=== PATIENT | female | born 1940 | race Caucasian/White ===

== ENCOUNTER 2016-10-20 09:46 | Emergency (ER) | payer MEDICARE, OTHER ==
[~2016-10-20] VITALS: Ht 165.1 cm; Wt 54.0 kg
[2016-10-20] MEDS ORDERED: ASPI81TA85 PO (10:15)
[2016-10-20] MEDS ORDERED: MULT1CHW39 PO (10:15)
[2016-10-20] MEDS ORDERED: HYDR12.55 PO (10:15)
[2016-10-20] MEDS ORDERED: CALC600T57 PO (10:15)
[2016-10-20] MEDS ORDERED: ARIC10TA PO (10:15)
[2016-10-20 10:48] LABS: BASO % 0.3 % (0.0-1.0); EOS # 0.1 K/mm3 (0.0-0.50); EOS % 1.6 % (0.0-3.0); LARGE UNSTAINED CELL # 0.1 K/mm3 (0.0-0.4); LYMPH # 1.5 K/mm3 (1.5-4.5); LYMPH % 24.5 % (24.0-44.0); MEAN CORPUSCULAR HGB CONC 32.9 g/dl (32.0-36.5); MONO # 0.4 K/mm3 (0.0-0.8); MONO % 6.4 % (0.0-5.0); NEUTROPHILS # 3.9 K/mm3 (1.8-7.7); NEUTROPHILS % 65.2 % (36.0-66.0); PLATELET COUNT, AUTOMATED 171 k/mm3 (150-450); RED CELL DISTRIBUTION WIDTH 12.5 % (11.5-14.5); WHITE BLOOD COUNT 5.9 K/mm3 (4.0-10.0)
[2016-10-20 11:13] LABS: ANION GAP 6 MEQ/L (8-16); BLOOD UREA NITROGEN 13 MG/DL (7-18); CARBON DIOXIDE LEVEL 32 MEQ/L (21-32); CHLORIDE LEVEL 105 MEQ/L (98-107); CREATININE FOR GFR 0.67 MG/DL (0.55-1.02); GLOMERULAR FILTRATION RATE > 60.0 (>39); GLUCOSE, FASTING 90 MG/DL (83-110); POTASSIUM SERUM 3.9 MEQ/L (3.5-5.1); SODIUM LEVEL 143 MEQ/L (136-145)
--- NOTE | 2016-10-20 12:05 | REP ---
CT HEAD WITHOUT CONTRAST: HISTORY: Left arm sensation loss. Areas of decreased attenuation are present in the periventricular and subcortical white matter. This represents small vessel ischemic disease. The ventricular system and cortical sulci as well as subarachnoid space in the posterior fossa are dilated consistent with moderate volume loss. There is no extracerebral collection. The visualized sinuses are clear. IMPRESSION: 1. Small vessel ischemic disease. 2. Moderate volume loss. Signed by Sammy España MD 10/20/2016 12:09 P
--- NOTE | 2016-10-20 13:31 | REP ---
CHEST, TWO VIEWS: COMPARISON: 03/31/2010. Mild scattered fibrotic changes are seen without evidence of acute infiltrate or pulmonary edema. The heart is normal in size. There is calcification of the thoracic aorta. Mediastinal silhouette is unchanged. There is mild apical pleural thickening, unchanged. There are mild degenerative changes. IMPRESSION: Mild chronic findings. No evidence of acute infiltrate. Signed by Jesus Marmolejo MD 10/20/2016 05:01 P
--- NOTE | 2016-10-20 16:19 | REP ---
MR BRAIN WITHOUT CONTRAST: HISTORY: Sensation loss left upper extremity. COMPARISON: MR 01/31/[address] 10/20/2016. Areas of increased signal intensity on T2 weighed images are present in the periventricular and subcortical white matter. This represents small vessel ischemic disease. There is no intraparenchymal hemorrhage, infarct, mass, or midline shift. The ventricular system and cortical sulci as well as subarachnoid space and the posterior fossa are dilated consistent with mild volume loss. There is no extracerebral collection. The visualized sinuses are clear. IMPRESSION: 1. Small vessel ischemic disease. 2. Mild volume loss. Signed by Sammy España MD 10/20/2016 04:20 P
[2016-10-20 17:38] VITALS: BP 141/66
--- NOTE | 2016-10-21 09:01 | ECGEPIP ---
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
--- NOTE | 2016-10-21 09:04 | ECGEPIP ---
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
--- NOTE | 2016-10-30 14:48 | REP ---
MRA BRAIN WITHOUT CONTRAST: HISTORY: Sensation loss left upper extremity. 3D [id number] MR angiography was performed at the level of the [place] of [place]. There is no aneurysm or arteriovenous malformation. Mild atherosclerotic disease involves the cavernous internal carotid arteries, posterior cerebral arteries and left middle cerebral artery trifurcation. The major intracranial vessels are patent. The left vertebral artery is dominant. The right vertebral artery terminates in the right posterior/inferior cerebellar artery. IMPRESSION: 1. There is no aneurysm or arteriovenous malformation. 2. Atherosclerotic disease as described above. Signed by Sammy España MD 10/30/2016 02:53 P
== END 2016-10-20 17:46 | disposition home or self-care (01) ==
LOC: EDBD 09:46 → M ED 11:31
DX: R07.9 Chest pain, unspecified (principal); I10 Essential (primary) hypertension; F03.90 Unspecified dementia, unspecified severity, without behavioral disturbance, psychotic disturbance, mood disturbance, and anxiety; Z87.891 Personal history of nicotine dependence; Z79.82 Long term (current) use of aspirin; Z79.899 Other long term (current) drug therapy

== ENCOUNTER → 2017-02-20 | Outpatient (REF) | payer MEDICARE, OTHER ==
[~2017-02-20] MED LIST: AMLO5TAB2 PO; ARIC1TAB2 PO; ASPI81TA85 PO; CALC600T57 PO; CEFT500T3 PO; HYDR12.55 PO; MEMA1TAB PO; MULT1CHW39 PO; ROSU10TA2 PO; VITMTA PO
[2017-02-20 19:58] LABS: ALBUMIN 3.8 GM/DL (3.2-5.2); ALBUMIN/GLOBULIN RATIO 1.23 (1.00-1.93); ALKALINE PHOSPHATASE 65 U/L (45-117); ALT/SGPT 20 U/L (12-78); ANION GAP 7 MEQ/L (8-16); AST/SGOT 19 U/L (15-37); BLOOD UREA NITROGEN 13 MG/DL (7-18); CALCIUM LEVEL 9.4 MG/DL (8.8-10.2); CARBON DIOXIDE LEVEL 32 MEQ/L (21-32); CHLORIDE LEVEL 102 MEQ/L (98-107); CHOLESTEROL LEVEL 293 MG/DL (<200); GLOMERULAR FILTRATION RATE > 60.0 (>39); GLUCOSE, FASTING 88 MG/DL (83-110); POTASSIUM SERUM 4.8 MEQ/L (3.5-5.1); SODIUM LEVEL 141 MEQ/L (136-145); TOTAL PROTEIN 6.9 GM/DL (6.4-8.2); TRIGLYCERIDES LEVEL 163 MG/DL (<150)
== END ==
LOC: M SFHCCAPE 08:11
PROVIDERS: ATTEND Family Medicine
DX: I10 Essential (primary) hypertension (principal); R73.03 Prediabetes; E78.2 Mixed hyperlipidemia

== ENCOUNTER → 2017-03-08 | Outpatient (REF) | payer MEDICARE, OTHER | LOC: M LABDRAWC 16:34 | PROVIDERS: ATTEND Obstetrics & Gynecology Gynecologic Oncology | DX: C56.1 Malignant neoplasm of right ovary (principal); C57.01 Malignant neoplasm of right fallopian tube ==

== ENCOUNTER → 2017-06-13 | Outpatient (REF) | payer MEDICARE, OTHER ==
[2017-06-13 19:58] LABS: ALBUMIN 4.3 GM/DL (3.2-5.2); ALBUMIN/GLOBULIN RATIO 1.59 (1.00-1.93); ALKALINE PHOSPHATASE 67 U/L (45-117); ALT/SGPT 21 U/L (12-78); ANION GAP 9 MEQ/L (8-16); AST/SGOT 21 U/L (7-37); BILIRUBIN,TOTAL 1.7 MG/DL (0.2-1.0); BLOOD UREA NITROGEN 10 MG/DL (7-18); CALCIUM LEVEL 9.2 MG/DL (8.8-10.2); CARBON DIOXIDE LEVEL 31 MEQ/L (21-32); CHLORIDE LEVEL 102 MEQ/L (98-107); CHOLESTEROL LEVEL 201 MG/DL (<200); CREATININE FOR GFR 0.75 MG/DL (0.55-1.02); GLOMERULAR FILTRATION RATE > 60.0 (>39); GLUCOSE, FASTING 95 MG/DL (83-110); POTASSIUM SERUM 3.6 MEQ/L (3.5-5.1); SODIUM LEVEL 142 MEQ/L (136-145); TRIGLYCERIDES LEVEL 123 MG/DL (<150)
== END ==
LOC: M SFHCCAPE 10:07
PROVIDERS: ATTEND Family Medicine
DX: E78.2 Mixed hyperlipidemia (principal); M83.9 Adult osteomalacia, unspecified

== ENCOUNTER 2017-07-31 14:32 | Inpatient (IN) | payer MEDICARE, OTHER ==
[~2017-07-31] VITALS: Ht 162.6 cm; Wt 57.7 kg
[2017-07-31] MEDS ORDERED: ALEN70SO PO (14:54)
[2017-07-31] MEDS ORDERED: FLAXOIL2 PO (14:54)
[2017-07-31 18:29] LABS: BASO % 0.1 % (0.0-1.0); EOS % 0.1 % (0.0-3.0); IMMATURE GRANULOCYTE % 0.5 % (0-0); LYMPH # 1.1 10^3/uL (1.5-4.5); MEAN CORPUSCULAR HEMOGLOBIN 30.7 pg (27.0-33.0); MEAN CORPUSCULAR HGB CONC 33.4 g/dl (32.0-36.5); MONO # 0.5 10^3/uL (0.0-0.8); MONO % 3.2 % (0.0-5.0); NEUTROPHILS # 13.4 10^3/uL (1.8-7.7); NEUTROPHILS % 89.1 % (36.0-66.0); PLATELET COUNT, AUTOMATED 177 10^3/uL (150-450); RED CELL DISTRIBUTION WIDTH 13.7 % (11.5-14.5); WHITE BLOOD COUNT 15.1 10^3/uL (4.0-10.0)
[2017-07-31 18:41] LABS: INR 0.89
--- NOTE | 2017-07-31 18:50 | REPUSA ---
Clinical history: Pain, swelling. Findings: The common femoral, superficial femoral, popliteal, and other deep venous structures compre ss normally and demonstrate normal color Doppler flow. Normal venous waveforms with augmentation are seen. Impression: No evidence of deep vein thrombosis in the left femoral popliteal venous system.
[2017-07-31 18:55] LABS: ANION GAP 7 MEQ/L (8-16); BLOOD UREA NITROGEN 18 MG/DL (7-18); CALCIUM LEVEL 9.6 MG/DL (8.8-10.2); CARBON DIOXIDE LEVEL 32 MEQ/L (21-32); CHLORIDE LEVEL 98 MEQ/L (98-107); CREATININE FOR GFR 0.82 MG/DL (0.55-1.02); ERYTHROCYTE SEDIMENTATION RATE 17 mm/hr (0-30); GLOMERULAR FILTRATION RATE > 60.0 (>39); GLUCOSE, FASTING 104 MG/DL (83-110); POTASSIUM SERUM 3.4 MEQ/L (3.5-5.1); SODIUM LEVEL 137 MEQ/L (136-145)
[2017-07-31] MEDS ORDERED: CEFTAROLINE FOSAMIL 600 MG in APPROPRIATE DILUENT 1 EA IV ONE (19:30)
[2017-07-31] MEDS ORDERED: HAIRTAB5 PO (19:55)
[2017-07-31] MEDS ORDERED: AMLO5TAB2 PO (19:55)
[2017-07-31] MEDS ORDERED: ALEN70TA39 PO (19:55)
[2017-07-31] MEDS ORDERED: FLAXCAP PO (19:55)
[2017-07-31] MEDS ORDERED: NS 1,000 ML IV SCH (19:59)
[2017-07-31] MEDS ORDERED: ACETAMINOPHEN TAB 650MG DOSE (2X325MG) PO PRN (20:00)
[2017-07-31] MEDS ORDERED: ONDANSETRON 4MG/2ML VIAL (J2405) IV PRN (20:00)
[2017-07-31] MEDS ORDERED: POTASSIUM CHLORIDE 10 MEQ SR TABLET PO ONE (20:15)
[2017-07-31 21:50] VITALS: BP 125/60
[2017-07-31] MEDS: ROSUVASTATIN 10 MG TAB (CRESTOR) PO SCH (22:48)
[2017-07-31] MEDS: ASPIRIN 81 MG ENTERIC TAB PO SCH (22:48)
[2017-07-31] MEDS: DONEPEZIL 5 MG TAB PO SCH (22:48)
[2017-07-31] MEDS: MEMANTINE 5MG TABLET (NAMENDA) PO SCH (22:53)
[2017-08-01 06:00] VITALS: BP 98/46
[2017-08-01 06:35] VITALS: BP 98/62
[2017-08-01 07:25] LABS: MEAN CORPUSCULAR HEMOGLOBIN 30.9 pg (27.0-33.0); MEAN CORPUSCULAR HGB CONC 33.7 g/dl (32.0-36.5); MEAN CORPUSCULAR VOLUME 91.8 fl (80.0-96.0); PLATELET COUNT, AUTOMATED 151 10^3/uL (150-450); RED CELL DISTRIBUTION WIDTH 13.6 % (11.5-14.5)
[2017-08-01 07:30] LABS: ANION GAP 8 MEQ/L (8-16); BLOOD UREA NITROGEN 12 MG/DL (7-18); CALCIUM LEVEL 8.2 MG/DL (8.8-10.2); CARBON DIOXIDE LEVEL 26 MEQ/L (21-32); CHLORIDE LEVEL 108 MEQ/L (98-107); CREATININE FOR GFR 0.55 MG/DL (0.55-1.02); GLOMERULAR FILTRATION RATE > 60.0 (>39); GLUCOSE, FASTING 84 MG/DL (83-110); MAGNESIUM LEVEL 2.1 MG/DL (1.8-2.4); POTASSIUM SERUM 3.7 MEQ/L (3.5-5.1); SODIUM LEVEL 142 MEQ/L (136-145)
--- NOTE | 2017-08-01 08:06 | HPE ---
DATE OF ADMISSION: 07/31/2017 PRIMARY CARE PROVIDER: Dr. Wade CHIEF COMPLAINT: Left leg redness. SUMMARY OF PRESENTATION: Ms. Purdy is a 77-year-old female with recent past medical history of left lower extremity cellulitis, for which she had a short hospital stay. She was admitted on 06/17/2017 and discharged on 06/19/2017. She had been feeling well since then, has had followup visits with Dr. Wade. Has been tolerating a diet. Does have a baseline level of dementia and memory impairment. Lives with her son. Last evening, she had decreased appetite and activity. This morning, she had also decreased appetite and was noted to have a rash on her left inner thigh. It advanced rapidly to become circumferential round her thigh. She came to the hospital for evaluation. Lower extremity Doppler showed no evidence of deep vein thrombosis (DVT). She was thought to have cellulitis and I was called for admission. She has been chilled, but apparently that is a chronic state for her. No recorded fever. No chest pain. No shortness of breath. No change in her bowel or bladder habits. No focal weakness, although she is having some difficulty walking now that her leg has become somewhat more red and swollen. PAST MEDICAL HISTORY: Notable for: 1. Hyperlipidemia. 2. Hypertension. 3. Osteoporosis. 4. Impaired fasting glucose. 5. Diverticulosis. 6. Ovarian cancer. 7. Fallopian tube cancer in 2003. 8. Hemorrhoids. 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 10. She is BRCA gene positive. She had a negative non-stress test in 2013. Negative treadmill stress test in 2015. SURGICAL HISTORY: Notable for: 1. Tonsillectomy. 2. Hysterectomy. 3. Oophorectomy for ovarian cancer. 4. Colonoscopy in 2001. ALLERGIES: She has no known drug allergies. MEDICATIONS: At home were reviewed with the pharmacy order entry technician and her son and they include: - Fosamax 70 mg weekly - calcium with vitamin D supplement - Norvasc 5 mg daily - aspirin 81 mg at night - Aricept 10 mg by mouth at night - amantadine 5 mg by mouth twice a day - multivitamin tablet daily - Crestor 10 mg by mouth at night FAMILY HISTORY: Notable for father in a motor vehicle accident. Mother at age 98. SOCIAL HISTORY: She is a former smoker but has not smoked in over 10 years. She does drink some alcohol. Retired. Lives with her son. Walks without a walker or cane. REVIEW OF SYSTEMS: Somewhat limited apart from previously stated. The patient is not a fantastic historian. PHYSICAL EXAMINATION: Temperature is 98.9, pulse 74, respiratory rate 18, blood pressure 129/62, 96% on room air. Body Mass Index (BMI) 21.8. She is awake, appropriately interactive, pleasantly conversant. Head is normocephalic. She is following commands. Pupils are equal, round and reactive. Nasal septum is midline. Mucous membranes are moist. Neck is supple. No cervical or supraclavicular adenopathy. Breathing is symmetrical and rested. I:E ratio is 1:3. No wheezes, rales or rhonchi. She is somewhat warm to the touch, although she is wearing a thick, woolen sweater, which was removed for the exam, of course. Heart is distant sounding. Normal S1, S2. Abdomen is soft, doughy, nontender. Left lower extremity is notable for redness of her thigh that traverses laterally and superiorly. There is mild medial tenderness. No fluctuance. There is no skin breakdown. There is also some blotchy, blanching erythema of her distal leg, sparing her foot. Sensation is intact at her foot. Dorsalis pedis is intact. Cranial nerves II through XII are grossly intact. She has normal mood and affect, but clearly has impaired memory and asks her son to give many of the answers for her. White cell count is 15.1, hemoglobin 14.9, platelets of 177. INR is 0.9, BUN 18, creatinine 0.82, C-reactive protein is 27.9 with a lactic acid of 1.9. Two blood cultures are sent. Lower extremity Doppler is negative. ASSESSMENT: This is a 77-year-old with recurrent left lower extremity cellulitis. The patient will require at least a two midnight hospital stay based on the severity of presentation. PLAN: 1. Infectious disease. Blood cultures sent and pending. I have started the patient on Teflaro empirically. There is no evidence on lower extremity Doppler. There is no evidence of skin breakdown. There is no evidence of necrosis or compartment syndrome. We will admit to the hospital. She will be followed by the family medicine group tomorrow. 2. The patient has hypertension. She is on Norvasc. I have added hold parameters. 3. The patient has hypokalemia, which is repleted in the emergency department. 4. The patient has underlying dementia and is likely a fall risk in the hospital. I have ordered the nurses of my suspicion. 5. The patient has hyperlipidemia and will be continued on Crestor. 6. Deep vein thrombosis (DVT) prophylaxis. Ordered in the form of Lovenox. 7. 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 8. The cause of her current cellulitis is unclear to me. She certainly received an adequate antibiotic course and had recovered completely. Further imaging or workup for immunocompromise could be clinically indicated depending on her course.
[2017-08-01] MEDS: CEFTAROLINE FOSAMIL 600 MG in APPROPRIATE DILUENT 1 EA IV SCH ×2 (08:26→20:07)
[2017-08-01] MEDS: ENOXAPARIN 40 MG/0.4 ML SYRINGE (J1650) SC SCH (08:26)
[2017-08-01] MEDS: MULTIVITAMINS/MINERALS THERAP 1 TAB PO SCH (08:26)
[2017-08-01] MEDS: MEMANTINE 5MG TABLET (NAMENDA) PO SCH ×2 (08:26→20:55)
[2017-08-01 08:27] VITALS: BP 139/63
[2017-08-01] MEDS: amLODIPine 5 MG TAB PO SCH (08:27)
--- NOTE | 2017-08-01 09:03 | IPNPDOC ---
Subjective Date Seen The patient was seen on 08/01/17. Subjective Chief Complaint/HPI The patient is a 77-year-old female admitted with a reason for visit of Cellulitis Of Lle. Events since last encounter Noted improvement in cellulitis symptoms. denies c/o. Skin: Denies: Rash, Lesions, Breakdown Pulmonary: Denies: Dyspnea, Cough Cardiovascular: Denies: Chest Pain, Palpitations, Orthopnea, Paroxysmal Noc. Dyspnea, Lt Headedness Gastrointestinal: Denies: Nausea, Vomiting, Abdominal Pain, Diarrhea, Constipation Genitourinary: Denies: Dysuria, Frequency, Incontinence, Retention Objective Physical Examination General Exam: Positive: Alert, No Acute Distress Chest Exam: Positive: Clear to auscultation, Normal air movement Heart Exam: Positive: Rate Normal, Regular Rhythm, Normal S1, Normal S2, Negative: Murmurs, Rubs Abdomen Exam: Positive: Normal bowel sounds, Soft, Negative: Tenderness, Hepatospenomegaly Skin Exam: Positive: Rash (erythema left lower leg. area of redness is smaller than indelible black ink sabrina created at time of admission. minimal induration and denies tenderness) Psych Exam: Positive: Mental status NL, Mood NL, Oriented x 3 Assessment /Plan Problems (1) Cellulitis Status: Acute Response to Treatment: Improving Problem Text: On day #2 Teflaro. Noted improvement from markings. Transition to PO alternative will be challenge. To cover MRSA, would need doxy or SXT/TMP or linezolid. To cover optimally more common Strep and MSSA, cephalexin or dicloxacillin or amoxicillin/clavulanate would be good. (2) Dementia Status: Chronic (3) HTN (hypertension) Status: Chronic Problem Text: on home dose Amlodipine. stable BP Plan/VTE VTE Prophylaxis Ordered?: Yes (lovenox) VS, I&O, 24H, Fishbone Vital Signs/I&O Vital Signs Date Time Temp Pulse Resp B/P (MAP) Pulse Ox O2 Delivery O2 Flow Rate FiO2 08/01/17 08:27 76 139/63 08/01/17 06:00 97.8 18 93 Room Air I&O- Last 24 Hours up to 6 AM 08/01/17 06:00 Intake Total 50 ml Output Total 600 ml Balance -550 ml Laboratory Data 24H LABS Laboratory Tests 2 07/31/17 18:13: Immature Granulocyte % (Auto) 0.5H, White Blood Count 15.1H, Red Blood Count 4.85, Hemoglobin 14.9, Hematocrit 44.6, Mean Corpuscular Volume 92.0, Mean Corpuscular Hemoglobin 30.7, Mean Corpuscular Hemoglobin Concent 33.4, Red Cell Distribution Width 13.7, Platelet Count 177, Neutrophils (%) (Auto) 89.1H, Lymphocytes (%) (Auto) 7.0L, Monocytes (%) (Auto) 3.2, Eosinophils (%) (Auto) 0.1, Basophils (%) (Auto) 0.1, Neutrophils # (Auto) 13.4H, Lymphocytes # (Auto) 1.1L, Monocytes # (Auto) 0.5, Eosinophils # (Auto) 0.0, Basophils # (Auto) 0.0, Immature Granulocyte # (Auto) 0.1H, Nucleated Red Blood Cells % (auto) 0.0, Erythrocyte Sedimentation Rate 17, Prothrombin Time 12.1L, Prothromb Time International Ratio 0.89, Anion Gap 7L, Glomerular Filtration Rate > 60.0, Lactic Acid Level 1.9, Blood Urea Nitrogen 18, Creatinine 0.82, Sodium Level 137 , Potassium Level 3.4L, Chloride Level 98, Carbon Dioxide Level 32, Calcium Level 9.6, C-Reactive Protein, Quantitative 27.90H 08/01/17 07:02: Nucleated Red Blood Cells % (auto) 0.0, Anion Gap 8, Glomerular Filtration Rate > 60.0, Blood Urea Nitrogen 12, Creatinine 0.55, Sodium Level 142, Potassium Level 3.7, Chloride Level 108H, Carbon Dioxide Level 26, Calcium Level 8.2L, C- Reactive Protein, Quantitative 15.80H, Magnesium Level 2.1 CBC/BMP Laboratory Tests 07/31/17 18:13 Red Blood Count 4.85, Mean Corpuscular Volume 92.0, Mean Corpuscular Hemoglobin 30.7, Mean Corpuscular Hemoglobin Concent 33.4, Red Cell Distribution Width 13.7 , Neutrophils (%) (Auto) 89.1 H, Lymphocytes (%) (Auto) 7.0 L, Monocytes (%) ( Auto) 3.2, Eosinophils (%) (Auto) 0.1, Basophils (%) (Auto) 0.1, Neutrophils # ( Auto) 13.4 H, Lymphocytes # (Auto) 1.1 L, Monocytes # (Auto) 0.5, Eosinophils # (Auto) 0.0, Basophils # (Auto) 0.0, Calcium Level 9.6 08/01/17 07:02 Red Blood Count 4.01, Mean Corpuscular Volume 91.8, Mean Corpuscular Hemoglobin 30.9, Mean Corpuscular Hemoglobin Concent 33.7, Red Cell Distribution Width 13.6 , Calcium Level 8.2 L Microbiology Microbiology 07/31/17 Blood Culture, Received Pending 07/31/17 Blood Culture, Received Pending 08/01/17 MRSA Screen, Received Pending Edilia Alexis Aug 01, 2017 09:03 Jaspal Baldwin MD Aug 01, 2017 12:52
[2017-08-01 14:00] VITALS: BP 117/58
[2017-08-01 20:00] VITALS: BP 140/64
[2017-08-01] MEDS: DONEPEZIL 5 MG TAB PO SCH (20:54)
[2017-08-01] MEDS: ROSUVASTATIN 10 MG TAB (CRESTOR) PO SCH (20:54)
[2017-08-01] MEDS: ASPIRIN 81 MG ENTERIC TAB PO SCH (20:54)
[2017-08-02] VITALS: BP 106/54
[2017-08-02 07:15] LABS: MEAN CORPUSCULAR HEMOGLOBIN 30.8 pg (27.0-33.0); MEAN CORPUSCULAR HGB CONC 33.2 g/dl (32.0-36.5); PLATELET COUNT, AUTOMATED 155 10^3/uL (150-450); RED CELL DISTRIBUTION WIDTH 13.2 % (11.5-14.5)
[2017-08-02 07:39] LABS: ANION GAP 6 MEQ/L (8-16); BLOOD UREA NITROGEN 7 MG/DL (7-18); CALCIUM LEVEL 8.3 MG/DL (8.8-10.2); CARBON DIOXIDE LEVEL 29 MEQ/L (21-32); CHLORIDE LEVEL 111 MEQ/L (98-107); CREATININE FOR GFR 0.56 MG/DL (0.55-1.02); GLOMERULAR FILTRATION RATE > 60.0 (>39); GLUCOSE, FASTING 83 MG/DL (83-110); MAGNESIUM LEVEL 2.2 MG/DL (1.8-2.4); POTASSIUM SERUM 3.7 MEQ/L (3.5-5.1); SODIUM LEVEL 146 MEQ/L (136-145)
[2017-08-02 08:00] VITALS: BP 103/56
[2017-08-02] MEDS: MULTIVITAMINS/MINERALS THERAP 1 TAB PO SCH (08:22)
[2017-08-02] MEDS: ENOXAPARIN 40 MG/0.4 ML SYRINGE (J1650) SC SCH (08:22)
[2017-08-02] MEDS: MEMANTINE 5MG TABLET (NAMENDA) PO SCH (09:05)
[2017-08-02] MEDS: amLODIPine 5 MG TAB PO SCH (09:05)
[2017-08-02] MEDS: CEFTAROLINE FOSAMIL 600 MG in APPROPRIATE DILUENT 1 EA IV SCH ×2 (09:33→09:45)
[2017-08-02] MEDS ORDERED: CEPH500T PO (11:19)
[2017-08-02 12:00] VITALS: BP 134/54
--- NOTE | 2017-08-07 11:08 | DSES ---
DATE OF ADMISSION: 07/31/2017 DATE OF DISCHARGE: 08/02/2017 PRIMARY CARE PROVIDER: Dr. Arnaldo Wade. ATTENDING PHYSICIAN: Dr. Jaspal Baldwin. HISTORY OF PRESENT ILLNESS: This is a 77-year-old female with recurrent left lower extremity cellulitis with a previous admission from 06/17 to 06/19. The patient states she had decreased activity and appetite and noted a rash on the left inner thigh. This advanced rapidly and developed a circumferential rash around her thigh which proceeded down her left lower extremity. Lower extremity Doppler revealed no evidence of deep vein thrombosis. The patient was subsequently admitted. HOSPITAL COURSE: The patient was placed on Teflaro. She received two days of intravenous (IV) antibiotics with significant improvement of her cellulitis. The patient's C-reactive protein (CRP) improved from 27 to 15.8. The patient's white blood cell count improved from 15,000 to 6000. Renal function and electrolytes remained stable. The patient has been ambulating around her room without difficulty. Has been tolerating full oral diet without difficulty. PHYSICAL EXAMINATION: VITAL SIGNS: Today vital signs are stable. She is afebrile. HEENT: Neck is supple without lymphadenopathy or jugular venous distention (JVD). CARDIOVASCULAR: Heart rate and rhythm are regular. PULMONARY: Lungs are clear to auscultation bilaterally. ABDOMEN: Soft and nontender. EXTREMITIES: Bilateral lower extremities are without any edema. Left lower extremity did show significant improvement of her erythema with reduction behind her marked skin margins. ASSESSMENT: 1. Left lower extremity cellulitis. 2. History of mild dementia. 3. History of hypertension. 4. History of hyperlipidemia. 5. History of osteoporosis. PLAN: The patient will be discharged to home. Diet is as tolerated. Activity is as tolerated. Medications include: - cephalexin 500 mg by mouth twice a day for 14 tablets - alendronate sodium 70 mg by mouth weekly - amlodipine 5 mg by mouth daily - aspirin 81 mg daily - calcium with D3 600 mg of calcium with 200 international units of D3 one tablet by mouth twice a day - Aricept 10 mg by mouth at bedtime - Flexeril one capsule by mouth twice a day - Hair, Skin and Nails one tablet by mouth twice a day - memantine 5 mg by mouth twice a day - multivitamin one tablet daily - rosuvastatin calcium 10 mg by mouth at bedtime The patient was encouraged to eat probiotic-containing food which includes Peruvian yogurt or may take [id number] probiotic to improve her gut health while on the antibiotics and prevent Clostridium (C.) difficile infection. The patient is discharged in stable and satisfactory condition with no further questions at time of discharge.
== END 2017-08-02 14:50 | disposition home or self-care (01) | DRG 603 ==
LOC: M ED 14:32 → M ED INP 19:59 → M MS4PR 22:00 → M PED 08-01 15:00
PROVIDERS: ADMIT Internal Medicine; ATTEND Family Medicine
DX: L03.116 Cellulitis of left lower limb (principal); G61.0 Guillain-Barre syndrome; E78.5 Hyperlipidemia, unspecified; I10 Essential (primary) hypertension; M81.0 Age-related osteoporosis without current pathological fracture; K64.8 Other hemorrhoids; R73.01 Impaired fasting glucose; F03.90 Unspecified dementia, unspecified severity, without behavioral disturbance, psychotic disturbance, mood disturbance, and anxiety; E87.6 Hypokalemia; Z85.44 Personal history of malignant neoplasm of other female genital organs; Z90.710 Acquired absence of both cervix and uterus; Z90.721 Acquired absence of ovaries, unilateral; Z79.82 Long term (current) use of aspirin; Z79.899 Other long term (current) drug therapy; Z85.43 Personal history of malignant neoplasm of ovary; Z87.891 Personal history of nicotine dependence

== ENCOUNTER → 2017-08-14 | Outpatient (REF) | payer MEDICARE, OTHER ==
[2017-08-14 13:11] LABS: FOLATE > 24.0 NG/ML (>5.4); VITAMIN B12 LEVEL 989 PG/ML (247-911)
[2017-08-14 13:24] LABS: FREE T4 1.09 NG/DL (0.76-1.46)
== END ==
LOC: M SFHCADAM 10:22
DX: R53.83 Other fatigue (principal)
CPT/HCPCS: 82746

== ENCOUNTER → 2017-09-12 | Outpatient (CLI) | payer MEDICARE, OTHER | LOC: M CLY 13:58 | DX: S82.031A Displaced transverse fracture of right patella, initial encounter for closed fracture (principal); X58.XXXA Exposure to other specified factors, initial encounter; Y92.9 Unspecified place or not applicable | CPT/HCPCS: 73564 ==

== ENCOUNTER 2017-12-25 19:13 | Inpatient (IN) | payer MEDICARE, OTHER ==
[2017-12-25 20:53] LABS: BASO % 0.1 % (0.0-1.0); HEMATOCRIT 42.9 % (36.0-47.0); HEMOGLOBIN 14.3 g/dl (12.0-15.5); IMMATURE GRANULOCYTE % 0.8 % (0-3.0); LYMPH # 0.6 10^3/uL (1.5-4.5); LYMPH % 4.4 % (24.0-44.0); MEAN CORPUSCULAR HEMOGLOBIN 30.3 pg (27.0-33.0); MEAN CORPUSCULAR HGB CONC 33.3 g/dl (32.0-36.5); MEAN CORPUSCULAR VOLUME 90.9 fl (80.0-96.0); MONO # 0.8 10^3/uL (0.0-0.8); MONO % 5.4 % (0.0-5.0); NEUTROPHILS # 12.9 10^3/uL (1.8-7.7); NEUTROPHILS % 89.3 % (36.0-66.0); PLATELET COUNT, AUTOMATED 183 10^3/uL (150-450); RED BLOOD COUNT 4.72 10^6/uL (4.00-5.40); RED CELL DISTRIBUTION WIDTH 14.4 % (11.5-14.5); WHITE BLOOD COUNT 14.5 10^3/uL (4.0-10.0)
[2017-12-25 21:15] LABS: ANION GAP 6 MEQ/L (8-16); BLOOD UREA NITROGEN 11 MG/DL (7-18); C REACTIVE PROTEIN QUANTITATIV 8.78 MG/DL (0.00-0.30); CARBON DIOXIDE LEVEL 30 MEQ/L (21-32); CHLORIDE LEVEL 100 MEQ/L (98-107); CREATININE FOR GFR 0.76 MG/DL (0.55-1.30); GLOMERULAR FILTRATION RATE > 60.0 (>39); GLUCOSE, FASTING 128 MG/DL (70-100); POTASSIUM SERUM 3.8 MEQ/L (3.5-5.1); SODIUM LEVEL 136 MEQ/L (136-145)
[2017-12-25] MEDS: CEFTAROLINE FOSAMIL 600 MG in D5W MINI-BAG PLUS 50 ML IV (22:07)
[2017-12-25 22:09] LABS: ERYTHROCYTE SEDIMENTATION RATE 14 mm/hr (0-30)
[2017-12-25] MEDS ORDERED: ACETAMINOPHEN TAB 650MG DOSE (2X325MG) PO (22:30)
[2017-12-25] MEDS ORDERED: ONDANSETRON 4 MG TAB (S0181) PO (22:30)
[2017-12-25] MEDS: NS 1,000 ML IV (23:14)
[2017-12-25] MEDS: ASPIRIN 81 MG ENTERIC TAB PO (23:24)
[2017-12-25] MEDS: DOCUSATE SODIUM 100 MG CAP PO (23:24)
[2017-12-25] MEDS: DONEPEZIL 5 MG TAB PO (23:24)
[2017-12-25] MEDS: MEMANTINE 5MG TABLET (NAMENDA) PO (23:24)
[2017-12-25] MEDS: OCUVITE 1 TAB PO (23:24)
[2017-12-26 08:22] LABS: BASO % 0.1 % (0.0-1.0); HEMATOCRIT 39.1 % (36.0-47.0); HEMOGLOBIN 12.9 g/dl (12.0-15.5); IMMATURE GRANULOCYTE % 0.2 % (0-3.0); LYMPH # 1.1 10^3/uL (1.5-4.5); LYMPH % 9.6 % (24.0-44.0); MEAN CORPUSCULAR HEMOGLOBIN 30.6 pg (27.0-33.0); MEAN CORPUSCULAR VOLUME 92.9 fl (80.0-96.0); MONO # 0.8 10^3/uL (0.0-0.8); MONO % 6.8 % (0.0-5.0); NEUTROPHILS # 9.7 10^3/uL (1.8-7.7); NEUTROPHILS % 83.3 % (36.0-66.0); PLATELET COUNT, AUTOMATED 195 10^3/uL (150-450); RED BLOOD COUNT 4.21 10^6/uL (4.00-5.40); RED CELL DISTRIBUTION WIDTH 14.4 % (11.5-14.5); WHITE BLOOD COUNT 11.6 10^3/uL (4.0-10.0)
[2017-12-26] MEDS: MULTIVITAMINS/MINERALS THERAP 1 TAB PO (08:35)
[2017-12-26] MEDS: DOCUSATE SODIUM 100 MG CAP PO ×2 (08:35→21:56)
[2017-12-26] MEDS: OCUVITE 1 TAB PO ×2 (08:35→21:56)
[2017-12-26] MEDS: ENOXAPARIN 40 MG/0.4 ML SYRINGE (J1650) SC (08:35)
[2017-12-26] MEDS: MEMANTINE 5MG TABLET (NAMENDA) PO ×2 (08:35→21:56)
[2017-12-26] MEDS: amLODIPine 5 MG TAB PO ×2 (08:37→11:21)
[2017-12-26 09:03] LABS: ANION GAP 5 MEQ/L (8-16); BLOOD UREA NITROGEN 10 MG/DL (7-18); CALCIUM LEVEL 8.2 MG/DL (8.8-10.2); CARBON DIOXIDE LEVEL 32 MEQ/L (21-32); CHLORIDE LEVEL 106 MEQ/L (98-107); GLOMERULAR FILTRATION RATE > 60.0 (>39); GLUCOSE, FASTING 101 MG/DL (70-100); POTASSIUM SERUM 3.7 MEQ/L (3.5-5.1); SODIUM LEVEL 143 MEQ/L (136-145)
[2017-12-26] MEDS: CEFTAROLINE FOSAMIL 600 MG in D5W MINI-BAG PLUS 50 ML IV ×2 (10:19→21:57)
[2017-12-26] MEDS: NS 1,000 ML IV (10:25)
[2017-12-26] MEDS: DONEPEZIL 5 MG TAB PO (21:56)
[2017-12-26] MEDS: ASPIRIN 81 MG ENTERIC TAB PO (21:56)
[2017-12-27] MEDS: NS 1,000 ML IV (01:53)
[2017-12-27 06:16] LABS: BASO % 0.2 % (0.0-1.0); EOS # 0.1 10^3/uL (0.0-0.50); EOS % 1.3 % (0.0-3.0); HEMATOCRIT 36.3 % (36.0-47.0); IMMATURE GRANULOCYTE % 0.4 % (0-3.0); LYMPH # 1.4 10^3/uL (1.5-4.5); LYMPH % 16.5 % (24.0-44.0); MEAN CORPUSCULAR HEMOGLOBIN 30.6 pg (27.0-33.0); MEAN CORPUSCULAR HGB CONC 33.1 g/dl (32.0-36.5); MEAN CORPUSCULAR VOLUME 92.6 fl (80.0-96.0); MONO # 0.8 10^3/uL (0.0-0.8); MONO % 9.1 % (0.0-5.0); NEUTROPHILS # 6.2 10^3/uL (1.8-7.7); NEUTROPHILS % 72.5 % (36.0-66.0); PLATELET COUNT, AUTOMATED 171 10^3/uL (150-450); RED BLOOD COUNT 3.92 10^6/uL (4.00-5.40); RED CELL DISTRIBUTION WIDTH 14.1 % (11.5-14.5); WHITE BLOOD COUNT 8.5 10^3/uL (4.0-10.0)
[2017-12-27 06:39] LABS: ALBUMIN 2.4 GM/DL (3.2-5.2); ALBUMIN/GLOBULIN RATIO 0.75 (1.00-1.93); ALKALINE PHOSPHATASE 56 U/L (45-117); ALT/SGPT 14 U/L (12-78); ANION GAP 6 MEQ/L (8-16); AST/SGOT 20 U/L (7-37); BILIRUBIN,TOTAL 0.7 MG/DL (0.2-1.0); BLOOD UREA NITROGEN 7 MG/DL (7-18); CALCIUM LEVEL 7.9 MG/DL (8.8-10.2); CARBON DIOXIDE LEVEL 27 MEQ/L (21-32); CHLORIDE LEVEL 113 MEQ/L (98-107); CREATININE FOR GFR 0.53 MG/DL (0.55-1.30); GLOMERULAR FILTRATION RATE > 60.0 (>39); GLUCOSE, FASTING 88 MG/DL (70-100); POTASSIUM SERUM 3.5 MEQ/L (3.5-5.1); SODIUM LEVEL 146 MEQ/L (136-145); TOTAL PROTEIN 5.6 GM/DL (6.4-8.2)
[2017-12-27] MEDS: MULTIVITAMINS/MINERALS THERAP 1 TAB PO (09:05)
[2017-12-27] MEDS: MEMANTINE 5MG TABLET (NAMENDA) PO ×2 (09:05→20:25)
[2017-12-27] MEDS: amLODIPine 5 MG TAB PO (09:05)
[2017-12-27] MEDS: DOCUSATE SODIUM 100 MG CAP PO ×2 (09:05→20:25)
[2017-12-27] MEDS: CEFDINIR 300 MG CAP (OMNICEF) PO ×2 (09:05→20:26)
[2017-12-27] MEDS: OCUVITE 1 TAB PO ×2 (09:05→20:25)
[2017-12-27] MEDS: ENOXAPARIN 40 MG/0.4 ML SYRINGE (J1650) SC (09:06)
[2017-12-27] MEDS: DONEPEZIL 5 MG TAB PO (20:25)
[2017-12-27] MEDS: ASPIRIN 81 MG ENTERIC TAB PO (20:25)
[2017-12-28 06:06] LABS: BASO % 0.6 % (0.0-1.0); EOS # 0.2 10^3/uL (0.0-0.50); HEMATOCRIT 36.3 % (36.0-47.0); IMMATURE GRANULOCYTE % 0.4 % (0-3.0); LYMPH # 1.9 10^3/uL (1.5-4.5); LYMPH % 28.8 % (24.0-44.0); MEAN CORPUSCULAR HEMOGLOBIN 30.5 pg (27.0-33.0); MEAN CORPUSCULAR HGB CONC 33.1 g/dl (32.0-36.5); MEAN CORPUSCULAR VOLUME 92.4 fl (80.0-96.0); MONO # 0.7 10^3/uL (0.0-0.8); MONO % 10.7 % (0.0-5.0); NEUTROPHILS # 3.8 10^3/uL (1.8-7.7); NEUTROPHILS % 56.5 % (36.0-66.0); PLATELET COUNT, AUTOMATED 183 10^3/uL (150-450); RED BLOOD COUNT 3.93 10^6/uL (4.00-5.40); RED CELL DISTRIBUTION WIDTH 13.7 % (11.5-14.5); WHITE BLOOD COUNT 6.7 10^3/uL (4.0-10.0)
[2017-12-28 06:24] LABS: ALBUMIN 2.5 GM/DL (3.2-5.2); ALBUMIN/GLOBULIN RATIO 0.76 (1.00-1.93); ALKALINE PHOSPHATASE 56 U/L (45-117); ALT/SGPT 17 U/L (12-78); ANION GAP 6 MEQ/L (8-16); AST/SGOT 23 U/L (7-37); BILIRUBIN,TOTAL 0.7 MG/DL (0.2-1.0); BLOOD UREA NITROGEN 6 MG/DL (7-18); CALCIUM LEVEL 8.4 MG/DL (8.8-10.2); CARBON DIOXIDE LEVEL 30 MEQ/L (21-32); CHLORIDE LEVEL 111 MEQ/L (98-107); CREATININE FOR GFR 0.62 MG/DL (0.55-1.30); GLOMERULAR FILTRATION RATE > 60.0 (>39); GLUCOSE, FASTING 82 MG/DL (70-100); POTASSIUM SERUM 3.8 MEQ/L (3.5-5.1); SODIUM LEVEL 147 MEQ/L (136-145); TOTAL PROTEIN 5.8 GM/DL (6.4-8.2)
[2017-12-28] MEDS: DOCUSATE SODIUM 100 MG CAP PO (08:14)
[2017-12-28] MEDS: MULTIVITAMINS/MINERALS THERAP 1 TAB PO (08:14)
[2017-12-28] MEDS: OCUVITE 1 TAB PO (08:14)
[2017-12-28] MEDS: CEFDINIR 300 MG CAP (OMNICEF) PO (08:14)
[2017-12-28] MEDS: MEMANTINE 5MG TABLET (NAMENDA) PO (08:14)
[2017-12-28] MEDS: ENOXAPARIN 40 MG/0.4 ML SYRINGE (J1650) SC (08:15)
[2017-12-28] MEDS: amLODIPine 5 MG TAB PO (08:15)
== END 2017-12-28 14:15 | disposition home health service (06) | DRG 603 ==
LOC: M ED 19:13 → M ED INP 22:21 → M MSPAV 23:36
DX: L03.311 Cellulitis of abdominal wall (principal); L03.116 Cellulitis of left lower limb; I10 Essential (primary) hypertension; F03.90 Unspecified dementia, unspecified severity, without behavioral disturbance, psychotic disturbance, mood disturbance, and anxiety; E78.5 Hyperlipidemia, unspecified; Z85.43 Personal history of malignant neoplasm of ovary; Z85.44 Personal history of malignant neoplasm of other female genital organs; Z90.710 Acquired absence of both cervix and uterus; Z79.82 Long term (current) use of aspirin; Z79.899 Other long term (current) drug therapy; Z87.891 Personal history of nicotine dependence

== ENCOUNTER 2018-01-24 18:14 | Inpatient (IN) | payer MEDICARE, OTHER ==
[2018-01-24] MEDS: ACETAMINOPHEN 325 MG TAB PO (19:45)
[2018-01-24] MEDS: ONDANSETRON 4MG/2ML VIAL (J2405) IV (19:45)
[2018-01-24] MEDS: CLINDAMYCIN 600 MG in APPROPRIATE DILUENT 1 EA IV (19:45)
[2018-01-24] MEDS: NS 500 ML IV ×2 (19:45→21:30)
[2018-01-24 20:26] LABS: BASO % 0.2 % (0.0-1.0); HEMATOCRIT 43.9 % (36.0-47.0); HEMOGLOBIN 14.9 g/dl (12.0-15.5); IMMATURE GRANULOCYTE % 0.4 % (0-3.0); LYMPH # 1.4 10^3/uL (1.5-4.5); LYMPH % 8.8 % (24.0-44.0); MEAN CORPUSCULAR HEMOGLOBIN 30.5 pg (27.0-33.0); MEAN CORPUSCULAR HGB CONC 33.9 g/dl (32.0-36.5); MONO # 0.7 10^3/uL (0.0-0.8); MONO % 4.5 % (0.0-5.0); NEUTROPHILS # 13.8 10^3/uL (1.8-7.7); NEUTROPHILS % 86.1 % (36.0-66.0); PLATELET COUNT, AUTOMATED 167 10^3/uL (150-450); RED BLOOD COUNT 4.88 10^6/uL (4.00-5.40); RED CELL DISTRIBUTION WIDTH 14.1 % (11.5-14.5)
[2018-01-24 20:44] LABS: ERYTHROCYTE SEDIMENTATION RATE 14 mm/hr (0-30)
[2018-01-24 20:52] LABS: ANION GAP 11 MEQ/L (8-16); BLOOD UREA NITROGEN 11 MG/DL (7-18); CALCIUM LEVEL 8.6 MG/DL (8.8-10.2); CARBON DIOXIDE LEVEL 25 MEQ/L (21-32); CHLORIDE LEVEL 102 MEQ/L (98-107); CREATININE FOR GFR 0.73 MG/DL (0.55-1.30); GLOMERULAR FILTRATION RATE > 60.0 (>39); GLUCOSE, FASTING 121 MG/DL (70-100); POTASSIUM SERUM 4.3 MEQ/L (3.5-5.1); SODIUM LEVEL 138 MEQ/L (136-145)
[2018-01-24 20:55] LABS: LACTIC ACID SEPSIS PROTOCOL 1.8 MMOL/L (0.4-2.0)
[2018-01-24] MEDS: DONEPEZIL 5 MG TAB PO (21:00)
[2018-01-24] MEDS: ASPIRIN 81 MG ENTERIC TAB PO (21:00)
[2018-01-24] MEDS: NS 1,000 ML IV (22:39)
[2018-01-24] MEDS ORDERED: ONDANSETRON 4MG/2ML VIAL (J2405) IV (22:45)
[2018-01-24] MEDS ORDERED: ACETAMINOPHEN TAB 650MG DOSE (2X325MG) PO (22:45)
[2018-01-24] MEDS: VANCOMYCIN HCL 1,000 MG, VIAL MATE ADAPTER 1 EACH in D5W 250 ML IV (23:00)
[2018-01-25 00:48] LABS: KETONE, URINE AUTO RFX NEGATIVE (NEGATIVE); MUCUS, URINE RFX SMALL (NEGATIVE); NITRITE, URINE AUTO RFX NEGATIVE (NEGATIVE); RBC, URINE AUTO RFX 3 /HPF (0-3); SPECIFIC GRAVITY UR AUTO RFX 1.018 (1.002-1.035); SQUAM EPITHELIAL CELL UR AURFX 2 /HPF (0-6)
[2018-01-25 00:49] LABS: LEUKOCYTE ESTERASE UR AUTO RFX 2+ (NEGATIVE); WBC, URINE AUTO RFX 12 /HPF (0-3)
[2018-01-25] MEDS: AMPICILLIN SOD/SULBACTAM SOD 3 GM in D5W MINI-BAG PLUS 100 ML IV ×3 (01:00→18:44)
[2018-01-25] MEDS: NS 500 ML IV (03:45)
[2018-01-25] MEDS: NS 1,000 ML IV (05:19)
[2018-01-25 08:36] LABS: BASO % 0.1 % (0.0-1.0); EOS # 0.1 10^3/uL (0.0-0.50); EOS % 0.7 % (0.0-3.0); HEMATOCRIT 42.6 % (36.0-47.0); HEMOGLOBIN 13.6 g/dl (12.0-15.5); IMMATURE GRANULOCYTE % 0.5 % (0-3.0); LYMPH % 11.7 % (24.0-44.0); MEAN CORPUSCULAR HEMOGLOBIN 30.1 pg (27.0-33.0); MEAN CORPUSCULAR HGB CONC 31.9 g/dl (32.0-36.5); MEAN CORPUSCULAR VOLUME 94.2 fl (80.0-96.0); MONO # 0.5 10^3/uL (0.0-0.8); MONO % 5.8 % (0.0-5.0); NEUTROPHILS # 7.1 10^3/uL (1.8-7.7); NEUTROPHILS % 81.2 % (36.0-66.0); PLATELET COUNT, AUTOMATED 139 10^3/uL (150-450); RED BLOOD COUNT 4.52 10^6/uL (4.00-5.40); WHITE BLOOD COUNT 8.7 10^3/uL (4.0-10.0)
[2018-01-25 09:00] LABS: ANION GAP 9 MEQ/L (8-16); BLOOD UREA NITROGEN 11 MG/DL (7-18); CALCIUM LEVEL 7.5 MG/DL (8.8-10.2); CARBON DIOXIDE LEVEL 29 MEQ/L (21-32); CHLORIDE LEVEL 108 MEQ/L (98-107); CREATININE FOR GFR 0.79 MG/DL (0.55-1.30); GLOMERULAR FILTRATION RATE > 60.0 (>39); GLUCOSE, FASTING 114 MG/DL (70-100); POTASSIUM SERUM 3.4 MEQ/L (3.5-5.1); SODIUM LEVEL 146 MEQ/L (136-145)
[2018-01-25] MEDS: ENOXAPARIN 40 MG/0.4 ML SYRINGE (J1650) SC (09:25)
[2018-01-25] MEDS: KCL 20MEQ in NS 1000ML 1,000 ML IV (11:40)
[2018-01-25] MEDS: VANCOMYCIN HCL 750 MG, VIAL MATE ADAPTER 1 EACH in D5W 250 ML IV ×2 (12:38→23:34)
[2018-01-25] MEDS: ASPIRIN 81 MG ENTERIC TAB PO (20:12)
[2018-01-25] MEDS: DONEPEZIL 5 MG TAB PO (20:12)
[2018-01-26] MEDS: AMPICILLIN SOD/SULBACTAM SOD 3 GM in D5W MINI-BAG PLUS 100 ML IV ×3 (01:59→16:07)
[2018-01-26] MEDS: KCL 20MEQ in NS 1000ML 1,000 ML IV (04:18)
[2018-01-26] MEDS: EUCERIN 120GM CREAM TOP ×2 (09:00→20:48)
[2018-01-26] MEDS: ENOXAPARIN 40 MG/0.4 ML SYRINGE (J1650) SC (09:24)
[2018-01-26 13:12] LABS: BLOOD UREA NITROGEN 4 MG/DL (7-18); CALCIUM LEVEL 7.9 MG/DL (8.8-10.2); CHLORIDE LEVEL 110 MEQ/L (98-107); CREATININE FOR GFR 0.59 MG/DL (0.55-1.30); GLOMERULAR FILTRATION RATE > 60.0 (>39); GLUCOSE, FASTING 94 MG/DL (70-100); MAGNESIUM LEVEL 1.9 MG/DL (1.8-2.4); POTASSIUM SERUM 3.4 MEQ/L (3.5-5.1); SODIUM LEVEL 146 MEQ/L (136-145)
[2018-01-26 13:19] LABS: ANION GAP 7 MEQ/L (8-16); CARBON DIOXIDE LEVEL 29 MEQ/L (21-32)
[2018-01-26] MEDS: POTASSIUM CHLORIDE 10 MEQ SR TABLET PO (16:07)
[2018-01-26] MEDS: ASPIRIN 81 MG ENTERIC TAB PO (20:48)
[2018-01-26] MEDS: DONEPEZIL 5 MG TAB PO (20:48)
[2018-01-27] MEDS: AMPICILLIN SOD/SULBACTAM SOD 3 GM in D5W MINI-BAG PLUS 100 ML IV ×2 (01:22→08:57)
[2018-01-27 06:14] LABS: HEMATOCRIT 36.1 % (36.0-47.0); HEMOGLOBIN 12.2 g/dl (12.0-15.5); MEAN CORPUSCULAR HGB CONC 33.8 g/dl (32.0-36.5); MEAN CORPUSCULAR VOLUME 91.6 fl (80.0-96.0); PLATELET COUNT, AUTOMATED 159 10^3/uL (150-450); RED BLOOD COUNT 3.94 10^6/uL (4.00-5.40); RED CELL DISTRIBUTION WIDTH 13.5 % (11.5-14.5); WHITE BLOOD COUNT 5.1 10^3/uL (4.0-10.0)
[2018-01-27 06:41] LABS: ANION GAP 7 MEQ/L (8-16); BLOOD UREA NITROGEN 4 MG/DL (7-18); CARBON DIOXIDE LEVEL 30 MEQ/L (21-32); CHLORIDE LEVEL 110 MEQ/L (98-107); CREATININE FOR GFR 0.47 MG/DL (0.55-1.30); GLOMERULAR FILTRATION RATE > 60.0 (>39); GLUCOSE, FASTING 85 MG/DL (70-100); POTASSIUM SERUM 3.7 MEQ/L (3.5-5.1); SODIUM LEVEL 147 MEQ/L (136-145)
[2018-01-27] MEDS: EUCERIN 120GM CREAM TOP ×2 (08:58→20:07)
[2018-01-27] MEDS: ENOXAPARIN 40 MG/0.4 ML SYRINGE (J1650) SC (08:58)
[2018-01-27] MEDS: AUGMENTIN 875 MG TAB PO ×2 (11:52→20:07)
[2018-01-27] MEDS: DONEPEZIL 5 MG TAB PO (20:07)
[2018-01-27] MEDS: ASPIRIN 81 MG ENTERIC TAB PO (20:07)
[2018-01-28 06:59] LABS: HEMATOCRIT 36.8 % (36.0-47.0); HEMOGLOBIN 12.4 g/dl (12.0-15.5); MEAN CORPUSCULAR HEMOGLOBIN 30.3 pg (27.0-33.0); MEAN CORPUSCULAR HGB CONC 33.7 g/dl (32.0-36.5); PLATELET COUNT, AUTOMATED 181 10^3/uL (150-450); RED BLOOD COUNT 4.09 10^6/uL (4.00-5.40); RED CELL DISTRIBUTION WIDTH 13.2 % (11.5-14.5); WHITE BLOOD COUNT 5.6 10^3/uL (4.0-10.0)
[2018-01-28 07:21] LABS: ANION GAP 5 MEQ/L (8-16); BLOOD UREA NITROGEN 7 MG/DL (7-18); CALCIUM LEVEL 8.6 MG/DL (8.8-10.2); CARBON DIOXIDE LEVEL 30 MEQ/L (21-32); CHLORIDE LEVEL 109 MEQ/L (98-107); CREATININE FOR GFR 0.58 MG/DL (0.55-1.30); GLOMERULAR FILTRATION RATE > 60.0 (>39); GLUCOSE, FASTING 88 MG/DL (70-100); POTASSIUM SERUM 3.7 MEQ/L (3.5-5.1); SODIUM LEVEL 144 MEQ/L (136-145)
[2018-01-28] MEDS: AUGMENTIN 875 MG TAB PO (07:37)
[2018-01-28] MEDS: ENOXAPARIN 40 MG/0.4 ML SYRINGE (J1650) SC (07:37)
[2018-01-28] MEDS: EUCERIN 120GM CREAM TOP (07:38)
== END 2018-01-28 12:53 | disposition home or self-care (01) | DRG 872 ==
LOC: M MSPAV 01-25 15:26 → M ED 18:14 → M ED INP 22:39
DX: A41.9 Sepsis, unspecified organism (principal); L03.116 Cellulitis of left lower limb; F03.90 Unspecified dementia, unspecified severity, without behavioral disturbance, psychotic disturbance, mood disturbance, and anxiety; I10 Essential (primary) hypertension; E78.5 Hyperlipidemia, unspecified; M81.0 Age-related osteoporosis without current pathological fracture; E87.6 Hypokalemia; Z85.43 Personal history of malignant neoplasm of ovary; Z90.710 Acquired absence of both cervix and uterus; Z90.721 Acquired absence of ovaries, unilateral; Z79.82 Long term (current) use of aspirin; Z79.899 Other long term (current) drug therapy

== ENCOUNTER → 2018-04-02 | Outpatient (REF) | payer MEDICARE, OTHER ==
[2018-04-02 21:20] LABS: CA 125 5.7 U/ML (<30.2)
== END ==
LOC: M LABDRWCV 20:25
DX: C57.01 Malignant neoplasm of right fallopian tube (principal)
CPT/HCPCS: 86304

== ENCOUNTER 2018-04-14 20:00 | Inpatient (IN) | payer MEDICARE, OTHER ==
[2018-04-14] MEDS ORDERED: ACETAMINOPHEN TAB 650MG DOSE (2X325MG) PO (21:30)
[2018-04-14] MEDS: ACETAMINOPHEN 325 MG TAB PO (21:42)
[2018-04-14] MEDS: NS 1,000 ML IV (22:19)
[2018-04-14] MEDS: ONDANSETRON 4MG/2ML VIAL (J2405) IV (22:19)
[2018-04-14 22:25] LABS: BASO % 0.1 % (0.0-1.0); EOS % 0.1 % (0.0-3.0); HEMATOCRIT 46.3 % (36.0-47.0); HEMOGLOBIN 15.2 g/dl (12.0-15.5); IMMATURE GRANULOCYTE % 0.7 % (0-3.0); LYMPH # 0.6 10^3/uL (1.5-4.5); LYMPH % 4.2 % (24.0-44.0); MEAN CORPUSCULAR HEMOGLOBIN 30.5 pg (27.0-33.0); MEAN CORPUSCULAR HGB CONC 32.8 g/dl (32.0-36.5); MEAN CORPUSCULAR VOLUME 92.8 fl (80.0-96.0); MONO # 0.6 10^3/uL (0.0-0.8); MONO % 4.7 % (0.0-5.0); NEUTROPHILS # 12.1 10^3/uL (1.8-7.7); NEUTROPHILS % 90.2 % (36.0-66.0); PLATELET COUNT, AUTOMATED 118 10^3/uL (150-450); RED BLOOD COUNT 4.99 10^6/uL (4.00-5.40); WHITE BLOOD COUNT 13.4 10^3/uL (4.0-10.0)
[2018-04-14 22:40] LABS: ANION GAP 9 MEQ/L (8-16); BLOOD UREA NITROGEN 11 MG/DL (7-18); C REACTIVE PROTEIN QUANTITATIV < 0.30 MG/DL (0.00-0.30); CALCIUM LEVEL 8.6 MG/DL (8.8-10.2); CARBON DIOXIDE LEVEL 26 MEQ/L (21-32); CHLORIDE LEVEL 106 MEQ/L (98-107); GLOMERULAR FILTRATION RATE > 60.0 (>39); GLUCOSE, FASTING 101 MG/DL (70-100); POTASSIUM SERUM 4.1 MEQ/L (3.5-5.1); SODIUM LEVEL 141 MEQ/L (136-145)
[2018-04-14 22:42] LABS: ERYTHROCYTE SEDIMENTATION RATE 2 mm/hr (0-30)
[2018-04-14 22:48] LABS: LACTIC ACID SEPSIS PROTOCOL 3.6 MMOL/L (0.4-2.0)
[2018-04-14] MEDS: ceFAZolin SOD 1 GM in D5W MINI-BAG PLUS 50 ML IV (23:45)
[2018-04-14] MEDS ORDERED: VANCOMYCIN HCL 1,000 MG in IV FLUID PLACE HOLDER 1 EA IV (23:45)
[2018-04-15] MEDS ORDERED: ACETAMINOPHEN TAB 650MG DOSE (2X325MG) PO (00:45)
[2018-04-15] MEDS ORDERED: ONDANSETRON 4MG/2ML VIAL (J2405) IV (00:45)
[2018-04-15] MEDS ORDERED: ceFAZolin SOD 1 GM in D5W MINI-BAG PLUS 50 ML IV (00:45)
[2018-04-15] MEDS: MEMANTINE 5MG TABLET (NAMENDA) PO ×3 (01:39→21:13)
[2018-04-15] MEDS: DONEPEZIL 5 MG TAB PO ×2 (01:39→21:13)
[2018-04-15] MEDS: MULTIVITAMINS/MINERALS THERAP 1 TAB PO ×3 (02:16→21:14)
[2018-04-15] MEDS: ASPIRIN 81 MG ENTERIC TAB PO ×2 (02:16→21:14)
[2018-04-15] MEDS: NS 1,000 ML IV ×2 (02:16→14:13)
[2018-04-15] MEDS: HEPARIN SOD (PORCINE) 5000 UNITS/ML VIAL SC ×3 (05:56→21:14)
[2018-04-15] MEDS ORDERED: MULTIVITAMINS/MINERALS THERAP 1 TAB PO (09:00)
[2018-04-15] MEDS: ceFAZolin SOD 1 GM in D5W MINI-BAG PLUS 50 ML IV ×2 (09:22→15:51)
[2018-04-15] MEDS: CALCIUM/VITAMIN D 250 MG TABLET PO (09:22)
[2018-04-15 11:59] LABS: BASO % 0.1 % (0.0-1.0); HEMATOCRIT 38.8 % (36.0-47.0); IMMATURE GRANULOCYTE % 0.3 % (0-3.0); LYMPH # 0.8 10^3/uL (1.5-4.5); LYMPH % 5.7 % (24.0-44.0); MEAN CORPUSCULAR HEMOGLOBIN 31.1 pg (27.0-33.0); MEAN CORPUSCULAR VOLUME 94.4 fl (80.0-96.0); MONO # 0.6 10^3/uL (0.0-0.8); MONO % 4.4 % (0.0-5.0); NEUTROPHILS # 12.9 10^3/uL (1.8-7.7); NEUTROPHILS % 89.5 % (36.0-66.0); PLATELET COUNT, AUTOMATED 108 10^3/uL (150-450); RED BLOOD COUNT 4.11 10^6/uL (4.00-5.40); RED CELL DISTRIBUTION WIDTH 14.4 % (11.5-14.5); WHITE BLOOD COUNT 14.5 10^3/uL (4.0-10.0)
[2018-04-15 12:05] LABS: HEMOGLOBIN 12.8 g/dl (12.0-15.5)
[2018-04-15 12:30] LABS: ALBUMIN 2.8 GM/DL (3.2-5.2); ALBUMIN/GLOBULIN RATIO 1.04 (1.00-1.93); ALKALINE PHOSPHATASE 46 U/L (45-117); ALT/SGPT 16 U/L (12-78); ANION GAP 6 MEQ/L (8-16); AST/SGOT 23 U/L (7-37); BILIRUBIN,TOTAL 1.4 MG/DL (0.2-1.0); BLOOD UREA NITROGEN 10 MG/DL (7-18); CALCIUM LEVEL 7.8 MG/DL (8.8-10.2); CARBON DIOXIDE LEVEL 30 MEQ/L (21-32); CHLORIDE LEVEL 106 MEQ/L (98-107); CREATININE FOR GFR 0.74 MG/DL (0.55-1.30); GLOMERULAR FILTRATION RATE > 60.0 (>39); GLUCOSE, FASTING 98 MG/DL (70-100); POTASSIUM SERUM 4.2 MEQ/L (3.5-5.1); SODIUM LEVEL 142 MEQ/L (136-145); TOTAL PROTEIN 5.5 GM/DL (6.4-8.2)
[2018-04-16] MEDS: ceFAZolin SOD 1 GM in D5W MINI-BAG PLUS 50 ML IV ×3 (00:11→16:36)
[2018-04-16] MEDS: NS 1,000 ML IV (01:08)
[2018-04-16] MEDS: GASTROGRAFIN SOLUTION 30ML PO ×2 (06:38→06:59)
[2018-04-16] MEDS: HEPARIN SOD (PORCINE) 5000 UNITS/ML VIAL SC ×3 (06:39→21:01)
[2018-04-16 07:11] LABS: HEMATOCRIT 36.4 % (36.0-47.0); HEMOGLOBIN 11.8 g/dl (12.0-15.5); MEAN CORPUSCULAR HEMOGLOBIN 30.3 pg (27.0-33.0); MEAN CORPUSCULAR HGB CONC 32.4 g/dl (32.0-36.5); MEAN CORPUSCULAR VOLUME 93.6 fl (80.0-96.0); PLATELET COUNT, AUTOMATED 102 10^3/uL (150-450); RED BLOOD COUNT 3.89 10^6/uL (4.00-5.40); RED CELL DISTRIBUTION WIDTH 14.4 % (11.5-14.5); WHITE BLOOD COUNT 9.3 10^3/uL (4.0-10.0)
[2018-04-16 07:25] LABS: ANION GAP 7 MEQ/L (8-16); BLOOD UREA NITROGEN 6 MG/DL (7-18); CALCIUM LEVEL 7.8 MG/DL (8.8-10.2); CARBON DIOXIDE LEVEL 27 MEQ/L (21-32); CHLORIDE LEVEL 113 MEQ/L (98-107); CREATININE FOR GFR 0.59 MG/DL (0.55-1.30); GLOMERULAR FILTRATION RATE > 60.0 (>39); GLUCOSE, FASTING 82 MG/DL (70-100); POTASSIUM SERUM 3.7 MEQ/L (3.5-5.1); SODIUM LEVEL 147 MEQ/L (136-145)
[2018-04-16] MEDS ORDERED: ISOVUE-370 76% 100ML VIAL (Q9967) As Ordered (08:09)
[2018-04-16] MEDS: CALCIUM/VITAMIN D 250 MG TABLET PO (09:50)
[2018-04-16] MEDS: MULTIVITAMINS/MINERALS THERAP 1 TAB PO ×2 (09:50→21:00)
[2018-04-16] MEDS: MEMANTINE 5MG TABLET (NAMENDA) PO ×2 (09:50→21:01)
[2018-04-16] MEDS: ASPIRIN 81 MG ENTERIC TAB PO (21:00)
[2018-04-16] MEDS: DONEPEZIL 5 MG TAB PO (21:00)
[2018-04-17] MEDS: ceFAZolin SOD 1 GM in D5W MINI-BAG PLUS 50 ML IV ×2 (00:43→09:01)
[2018-04-17 06:00] LABS: HEMATOCRIT 36.6 % (36.0-47.0); HEMOGLOBIN 11.9 g/dl (12.0-15.5); MEAN CORPUSCULAR HEMOGLOBIN 30.4 pg (27.0-33.0); MEAN CORPUSCULAR HGB CONC 32.5 g/dl (32.0-36.5); MEAN CORPUSCULAR VOLUME 93.6 fl (80.0-96.0); PLATELET COUNT, AUTOMATED 108 10^3/uL (150-450); RED BLOOD COUNT 3.91 10^6/uL (4.00-5.40); RED CELL DISTRIBUTION WIDTH 13.9 % (11.5-14.5); WHITE BLOOD COUNT 6.6 10^3/uL (4.0-10.0)
[2018-04-17] MEDS: HEPARIN SOD (PORCINE) 5000 UNITS/ML VIAL SC ×3 (06:05→21:33)
[2018-04-17 06:07] LABS: ANION GAP 8 MEQ/L (8-16); BLOOD UREA NITROGEN 5 MG/DL (7-18); C REACTIVE PROTEIN QUANTITATIV 7.58 MG/DL (0.00-0.30); CALCIUM LEVEL 8.2 MG/DL (8.8-10.2); CARBON DIOXIDE LEVEL 27 MEQ/L (21-32); CHLORIDE LEVEL 111 MEQ/L (98-107); CREATININE FOR GFR 0.45 MG/DL (0.55-1.30); GLOMERULAR FILTRATION RATE > 60.0 (>39); GLUCOSE, FASTING 89 MG/DL (70-100); POTASSIUM SERUM 3.5 MEQ/L (3.5-5.1); SODIUM LEVEL 146 MEQ/L (136-145)
[2018-04-17 06:12] LABS: LACTIC ACID SEPSIS PROTOCOL 0.7 MMOL/L (0.4-2.0)
[2018-04-17] MEDS: MEMANTINE 5MG TABLET (NAMENDA) PO ×2 (10:25→21:34)
[2018-04-17] MEDS: MULTIVITAMINS/MINERALS THERAP 1 TAB PO ×2 (10:26→21:34)
[2018-04-17] MEDS: CALCIUM/VITAMIN D 250 MG TABLET PO (10:26)
[2018-04-17] MEDS: CEFDINIR 300 MG CAP (OMNICEF) PO ×2 (11:28→21:34)
[2018-04-17] MEDS: DONEPEZIL 5 MG TAB PO (21:34)
[2018-04-17] MEDS: ASPIRIN 81 MG ENTERIC TAB PO (21:34)
[2018-04-18] MEDS: HEPARIN SOD (PORCINE) 5000 UNITS/ML VIAL SC (05:54)
[2018-04-18 06:37] LABS: HEMATOCRIT 38.1 % (36.0-47.0); HEMOGLOBIN 12.3 g/dl (12.0-15.5); MEAN CORPUSCULAR HEMOGLOBIN 30.2 pg (27.0-33.0); MEAN CORPUSCULAR HGB CONC 32.3 g/dl (32.0-36.5); MEAN CORPUSCULAR VOLUME 93.6 fl (80.0-96.0); PLATELET COUNT, AUTOMATED 140 10^3/uL (150-450); RED BLOOD COUNT 4.07 10^6/uL (4.00-5.40); RED CELL DISTRIBUTION WIDTH 13.7 % (11.5-14.5); WHITE BLOOD COUNT 5.4 10^3/uL (4.0-10.0)
[2018-04-18 07:00] LABS: ANION GAP 10 MEQ/L (8-16); BLOOD UREA NITROGEN 5 MG/DL (7-18); C REACTIVE PROTEIN QUANTITATIV 3.11 MG/DL (0.00-0.30); CALCIUM LEVEL 8.6 MG/DL (8.8-10.2); CARBON DIOXIDE LEVEL 28 MEQ/L (21-32); CHLORIDE LEVEL 109 MEQ/L (98-107); CREATININE FOR GFR 0.56 MG/DL (0.55-1.30); GLOMERULAR FILTRATION RATE > 60.0 (>39); GLUCOSE, FASTING 78 MG/DL (70-100); POTASSIUM SERUM 3.7 MEQ/L (3.5-5.1); SODIUM LEVEL 147 MEQ/L (136-145)
[2018-04-18] MEDS: MEMANTINE 5MG TABLET (NAMENDA) PO (10:07)
[2018-04-18] MEDS: MULTIVITAMINS/MINERALS THERAP 1 TAB PO (10:07)
[2018-04-18] MEDS: CEFDINIR 300 MG CAP (OMNICEF) PO (10:07)
[2018-04-18] MEDS: CALCIUM/VITAMIN D 250 MG TABLET PO (10:07)
== END 2018-04-18 13:55 | disposition home or self-care (01) | DRG 603 ==
LOC: M ED 20:00 → M ED INP 04-15 00:44 → M MS5PR 04-16 16:05
DX: L03.311 Cellulitis of abdominal wall (principal); L03.116 Cellulitis of left lower limb; F03.90 Unspecified dementia, unspecified severity, without behavioral disturbance, psychotic disturbance, mood disturbance, and anxiety; I10 Essential (primary) hypertension; E78.5 Hyperlipidemia, unspecified; D69.6 Thrombocytopenia, unspecified; M81.0 Age-related osteoporosis without current pathological fracture; Z87.891 Personal history of nicotine dependence; Z90.710 Acquired absence of both cervix and uterus; Z90.722 Acquired absence of ovaries, bilateral; Z85.43 Personal history of malignant neoplasm of ovary; Z79.899 Other long term (current) drug therapy

== ENCOUNTER → 2018-12-11 | Outpatient (REF) | payer MEDICARE, OTHER ==
[~2018-12-11] MED LIST changes: +ALEN70SO PO; +ALEN70TA74 PO; -AMLO5TAB2 PO; +AMLO5TAB6 PO; +AMOX875T2 PO; +CALC1TAB30 PO; +CEFD300CAP PO; +CEPH500T PO; +FLAX100012 PO; +FLAXCAP PO; +FLAXOIL2 PO; +HAIRTAB5 PO; -MULT1CHW39 PO; +MULT200T7 PO; -ROSU10TA2 PO; +ROSU10TA5 PO
[2018-12-11 18:15] LABS: HEMATOCRIT 47.8 % (36.0-47.0); HEMOGLOBIN 15.5 g/dl (12.0-15.5); MEAN CORPUSCULAR HEMOGLOBIN 31.1 pg (27.0-33.0); MEAN CORPUSCULAR HGB CONC 32.4 g/dl (32.0-36.5); MEAN CORPUSCULAR VOLUME 95.8 fl (80.0-96.0); PLATELET COUNT, AUTOMATED 193 10^3/uL (150-450); RED BLOOD COUNT 4.99 10^6/uL (4.00-5.40); WHITE BLOOD COUNT 7.2 10^3/uL (4.0-10.0)
[2018-12-11 18:34] LABS: HEMOGLOBIN A1c 5.2 %
[2018-12-11 18:36] LABS: ALT/SGPT 22 U/L (12-78); BILIRUBIN,TOTAL 0.9 MG/DL (0.2-1.0); BLOOD UREA NITROGEN 9 MG/DL (7-18); CALCIUM LEVEL 9.1 MG/DL (8.8-10.2); CARBON DIOXIDE LEVEL 34 MEQ/L (21-32); CHLORIDE LEVEL 105 MEQ/L (98-107); CHOLESTEROL LEVEL 272 MG/DL (<200); CREATININE FOR GFR 0.77 MG/DL (0.55-1.30); FREE T4 0.99 NG/DL (0.76-1.46); GLOMERULAR FILTRATION RATE > 60.0 (>39); GLUCOSE, FASTING 74 MG/DL (70-100); HDL CHOLESTEROL 68 MG/DL (>40); LDL CHOLESTEROL 168 MG/DL (<100); NON-HDL-C 204 MG/DL; POTASSIUM SERUM 4.5 MEQ/L (3.5-5.1); SODIUM LEVEL 141 MEQ/L (136-145); TOTAL PROTEIN 6.7 GM/DL (6.4-8.2); TRIGLYCERIDES LEVEL 179 MG/DL (<150)
== END ==
LOC: M SFHCCAPE 07:01
PROVIDERS: ATTEND Family Medicine
DX: F03.90 Unspecified dementia, unspecified severity, without behavioral disturbance, psychotic disturbance, mood disturbance, and anxiety (principal); I10 Essential (primary) hypertension; R73.03 Prediabetes; E78.2 Mixed hyperlipidemia

== ENCOUNTER → 2019-03-24 | Outpatient (REF) | payer MEDICARE, OTHER ==
[~2019-03-24] MED LIST changes: -ROSU10TA5 PO; +ROSU10TA6 PO
== END ==
LOC: M LAB REF 16:29
PROVIDERS: ATTEND Obstetrics & Gynecology Gynecologic Oncology
DX: C57.01 Malignant neoplasm of right fallopian tube (principal)

== ENCOUNTER → 2020-05-28 | Outpatient (REF) | payer MEDICARE, OTHER ==
[~2020-05-28] MED LIST changes: +AMLO1TAB24 PO; -AMLO5TAB6 PO; -ASPI81TA85 PO; +ASPI81TA86 PO; -MEMA1TAB PO; +MEMA1TAB3 PO
[2020-05-28 13:11] LABS: HEMATOCRIT 46.9 % (36.0-47.0); MEAN CORPUSCULAR HEMOGLOBIN 30.5 pg (27.0-33.0); MEAN CORPUSCULAR VOLUME 95.5 fl (80.0-96.0); PLATELET COUNT, AUTOMATED 188 10^3/uL (150-450); RED BLOOD COUNT 4.91 10^6/uL (4.00-5.40); WHITE BLOOD COUNT 6.3 10^3/uL (4.0-10.0)
[2020-05-28 13:42] LABS: ALBUMIN 3.7 GM/DL (3.2-5.2); ALT/SGPT 20 U/L (12-78); BILIRUBIN,TOTAL 1.3 MG/DL (0.2-1.0); BLOOD UREA NITROGEN 11 MG/DL (7-18); CALCIUM LEVEL 9.4 MG/DL (8.8-10.2); CARBON DIOXIDE LEVEL 33 MEQ/L (21-32); CHLORIDE LEVEL 105 MEQ/L (98-107); CHOLESTEROL LEVEL 225 MG/DL (<200); CHOLESTEROL RISK RATIO 3.571 (<5); CREATININE FOR GFR 0.73 MG/DL (0.55-1.30); GLOMERULAR FILTRATION RATE > 60.0 (>32); GLUCOSE, FASTING 89 MG/DL (70-100); HDL CHOLESTEROL 63 MG/DL (>40); LDL CHOLESTEROL 138 MG/DL (<100); NON-HDL-C 162 MG/DL; POTASSIUM SERUM 4.1 MEQ/L (3.5-5.1); SODIUM LEVEL 140 MEQ/L (136-145); TOTAL PROTEIN 6.6 GM/DL (6.4-8.2); TRIGLYCERIDES LEVEL 119 MG/DL (<150)
[2020-05-28 14:01] LABS: HEMOGLOBIN A1c 5.3 %
== END ==
LOC: M SFHCADAM 08:55
PROVIDERS: ATTEND Family Medicine
DX: F03.90 Unspecified dementia, unspecified severity, without behavioral disturbance, psychotic disturbance, mood disturbance, and anxiety (principal); I10 Essential (primary) hypertension; R73.03 Prediabetes; E78.2 Mixed hyperlipidemia; Z85.43 Personal history of malignant neoplasm of ovary; Z23 Encounter for immunization
CPT/HCPCS: 80053; 80061; 83036; 85027; 86304; 90682; G0008; G0463

== ENCOUNTER → 2021-10-28 | Outpatient (REF) | payer MEDICARE, OTHER ==
[~2021-10-28] MED LIST changes: -ALEN70SO PO; +ALEN70SO2 PO; -ALEN70TA74 PO; +ALEN70TA82 PO
[2021-10-28 12:56] LABS: HEMATOCRIT 50.3 % (36.0-47.0); HEMOGLOBIN 16.2 g/dl (12.0-15.5); MEAN CORPUSCULAR HEMOGLOBIN 31.1 pg (27.0-33.0); MEAN CORPUSCULAR HGB CONC 32.2 g/dl (32.0-36.5); MEAN CORPUSCULAR VOLUME 96.5 fl (80.0-96.0); PLATELET COUNT, AUTOMATED 201 10^3/uL (150-450); RED BLOOD COUNT 5.21 10^6/uL (4.00-5.40); WHITE BLOOD COUNT 7.6 10^3/uL (4.0-10.0)
[2021-10-28 13:16] LABS: HEMOGLOBIN A1c 5.2 %
[2021-10-28 13:48] LABS: ALBUMIN 4.5 GM/DL (3.2-5.2); ALT/SGPT 26 U/L (12-78); BILIRUBIN,TOTAL 1.6 MG/DL (0.2-1.0); BLOOD UREA NITROGEN 9 MG/DL (7-18); CALCIUM LEVEL 10.1 MG/DL (8.8-10.2); CARBON DIOXIDE LEVEL 31 MEQ/L (21-32); CHLORIDE LEVEL 103 MEQ/L (98-107); CREATININE FOR GFR 0.82 MG/DL (0.55-1.30); FREE T4 0.95 NG/DL (0.76-1.46); GLOMERULAR FILTRATION RATE > 60.0 (>32); GLUCOSE, FASTING 89 MG/DL (70-100); SODIUM LEVEL 142 MEQ/L (136-145); THYROID STIMULATING HORMONE 0.972 uIU/ML (0.358-3.740); TOTAL PROTEIN 7.6 GM/DL (6.4-8.2)
== END ==
LOC: M SFHCADAM 09:23
PROVIDERS: ATTEND Family Medicine
DX: F03.90 Unspecified dementia, unspecified severity, without behavioral disturbance, psychotic disturbance, mood disturbance, and anxiety (principal); I10 Essential (primary) hypertension; R73.03 Prediabetes

== ENCOUNTER → 2022-05-26 | Outpatient (CLI) | payer MEDICARE, OTHER | LOC: M WHC 07:42 | PROVIDERS: ATTEND Nurse Practitioner | DX: Z12.31 Encounter for screening mammogram for malignant neoplasm of breast (principal) ==

== ENCOUNTER → 2022-11-16 | Outpatient (REF) | payer MEDICARE, OTHER | LOC: M SFHCADAM 09:16 | PROVIDERS: ATTEND Family Medicine | DX: R73.03 Prediabetes (principal); I10 Essential (primary) hypertension; E78.2 Mixed hyperlipidemia; F03.90 Unspecified dementia, unspecified severity, without behavioral disturbance, psychotic disturbance, mood disturbance, and anxiety ==

== ENCOUNTER → 2022-11-22 | Outpatient (REF) | payer MEDICARE, OTHER ==
[2022-11-22 17:36] LABS: HEMATOCRIT 49.3 % (36.0-47.0); HEMOGLOBIN 15.7 g/dl (12.0-15.5); MEAN CORPUSCULAR HEMOGLOBIN 30.7 pg (27.0-33.0); MEAN CORPUSCULAR HGB CONC 31.8 g/dl (32.0-36.5); MEAN CORPUSCULAR VOLUME 96.3 fl (80.0-96.0); PLATELET COUNT, AUTOMATED 182 10^3/uL (150-450); RED BLOOD COUNT 5.12 10^6/uL (4.00-5.40); WHITE BLOOD COUNT 7.6 10^3/uL (4.0-10.0)
[2022-11-22 17:56] LABS: ALBUMIN 3.9 G/DL (3.2-5.2); ALKALINE PHOSPHATASE 71 U/L (46-116); ALT/SGPT 18 U/L (7.0-40); AST/SGOT 29 U/L (<34); BILIRUBIN,TOTAL 1.4 MG/DL (0.3-1.2); BLOOD UREA NITROGEN 10 MG/DL (9-23); CALCIUM LEVEL 9.5 MG/DL (8.3-10.6); CARBON DIOXIDE LEVEL 27 MMOL/L (20-31); CHLORIDE LEVEL 101 MMOL/L (98-107); CHOLESTEROL LEVEL 217 MG/DL (<200); CHOLESTEROL RISK RATIO 3.02 (<5); CREATININE FOR GFR 0.77 MG/DL (0.55-1.30); FREE T4 0.96 NG/DL (0.89-1.76); GLOMERULAR FILTRATION RATE > 60.0 (>32); GLUCOSE, FASTING 120 MG/DL (74-106); HDL CHOLESTEROL 71.8 MG/DL (>40); LDL CHOLESTEROL 114.6 MG/DL (<100); NON-HDL-C 145.2 MG/DL; POTASSIUM SERUM 4.2 MMOL/L (3.5-5.1); SODIUM LEVEL 140 MMOL/L (136-145); THYROID STIMULATING HORMONE 1.812 uIU/ML (0.55-4.78); TOTAL PROTEIN 6.7 G/DL (5.7-8.2); TRIGLYCERIDES LEVEL 153 MG/DL (<150)
== END ==
LOC: M SFHCADAM 07:30
PROVIDERS: ATTEND Family Medicine
DX: R73.03 Prediabetes (principal); I10 Essential (primary) hypertension; E78.2 Mixed hyperlipidemia; F03.90 Unspecified dementia, unspecified severity, without behavioral disturbance, psychotic disturbance, mood disturbance, and anxiety

== ENCOUNTER → 2023-11-23 | Outpatient (REF) | payer MEDICARE, OTHER ==
[2023-11-23 13:09] LABS: HEMATOCRIT 50.9 % (36.0-47.0); HEMOGLOBIN 16.4 g/dl (12.0-15.5); MEAN CORPUSCULAR HEMOGLOBIN 31.1 pg (27.0-33.0); MEAN CORPUSCULAR HGB CONC 32.2 g/dl (32.0-36.5); MEAN CORPUSCULAR VOLUME 96.6 fl (80.0-96.0); PLATELET COUNT, AUTOMATED 204 10^3/uL (150-450); RED BLOOD COUNT 5.27 10^6/uL (4.00-5.40); WHITE BLOOD COUNT 7.8 10^3/uL (4.0-10.0)
[2023-11-23 13:17] LABS: FREE T4 1.13 NG/DL (0.89-1.76)
[2023-11-23 13:22] LABS: HEMOGLOBIN A1c 4.9 % (4.0-6.0)
[2023-11-23 13:25] LABS: ALKALINE PHOSPHATASE 62 U/L (46-116); ALT/SGPT 15 U/L (7.0-40); AST/SGOT 20 U/L (<34); BLOOD UREA NITROGEN 12 MG/DL (9-23); CALCIUM LEVEL 10.2 MG/DL (8.3-10.6); CARBON DIOXIDE LEVEL 34 MMOL/L (20-31); CHLORIDE LEVEL 103 MMOL/L (98-107); CHOLESTEROL LEVEL 231 MG/DL (<200); CHOLESTEROL RISK RATIO 3.23 (<5); CREATININE FOR GFR 0.79 MG/DL (0.55-1.30); GLOMERULAR FILTRATION RATE > 60.0 (>32); GLUCOSE, FASTING 86 MG/DL (74-106); HDL CHOLESTEROL 71.5 MG/DL (>40); LDL CHOLESTEROL 121.5 MG/DL (<100); NON-HDL-C 159.5 MG/DL; POTASSIUM SERUM 4.1 MMOL/L (3.5-5.1); SODIUM LEVEL 143 MMOL/L (136-145); TOTAL PROTEIN 6.9 G/DL (5.7-8.2); TRIGLYCERIDES LEVEL 190 MG/DL (<150)
== END ==
LOC: M SFHCADAM 08:37
PROVIDERS: ATTEND Family Medicine
DX: I10 Essential (primary) hypertension (principal); E78.2 Mixed hyperlipidemia; F03.90 Unspecified dementia, unspecified severity, without behavioral disturbance, psychotic disturbance, mood disturbance, and anxiety; R73.03 Prediabetes; Z85.43 Personal history of malignant neoplasm of ovary

== ENCOUNTER → 2024-04-08 | Outpatient (CLI) | payer MEDICARE, OTHER ==
[~2024-04-08] MED LIST changes: -ROSU10TA6 PO; +ROSU10TA61 PO
== END ==
LOC: M WHC 10:14
PROVIDERS: ATTEND Physician Assistant
DX: Z12.31 Encounter for screening mammogram for malignant neoplasm of breast (principal)

== ENCOUNTER → 2024-08-12 | Outpatient (CLI) | payer MEDICARE, OTHER ==
[~2024-08-12] MED LIST changes: -MULT200T7 PO; +MULT200T9 PO
== END ==
LOC: M WHC 09:58
PROVIDERS: ATTEND Physician Assistant
DX: Z12.31 Encounter for screening mammogram for malignant neoplasm of breast (principal)

== ENCOUNTER 2024-10-22 21:42 | Inpatient (IN) | payer MEDICARE, OTHER ==
[~2024-10-22] VITALS: Ht 152.4 cm; Wt 61.4 kg
[2024-10-22] MEDS: KETOROLAC 30 MG/ML 1ML VIAL IV ONE (23:16)
[2024-10-22] MEDS ORDERED: ASPI81TA26 PO (23:39)
[2024-10-22] MEDS ORDERED: CVS-161 PO (23:39)
[2024-10-22] MEDS ORDERED: THERTAB52 PO (23:39)
[2024-10-22] MEDS ORDERED: PRAV20TA2 PO (23:40)
[2024-10-22] MEDS ORDERED: ACETAMINOPHEN 325 MG TAB PO PRN (23:45)
[2024-10-22] MEDS ORDERED: HOME MED LIST COMPLETE! XX SCH (23:45)
[2024-10-22] MEDS: PANTOPRAZOLE 20 MG TAB PO ONE (23:45)
[2024-10-22] MEDS ORDERED: MAALOX 30 ML SUSP *UDC PO PRN (23:45)
[2024-10-22 23:46] LABS: BLOOD UREA NITROGEN 13 MG/DL (9-23); CALCIUM LEVEL 8.9 MG/DL (8.3-10.6); CARBON DIOXIDE LEVEL 32 MMOL/L (20-31); CHLORIDE LEVEL 103 MMOL/L (98-107); CREATININE FOR GFR 0.74 MG/DL (0.55-1.30); GLOMERULAR FILTRATION RATE > 60.0 (>32); GLUCOSE, FASTING 108 MG/DL (74-106); MAGNESIUM LEVEL 1.8 MG/DL (1.8-2.4); POTASSIUM SERUM 4.1 MMOL/L (3.5-5.1); SODIUM LEVEL 142 MMOL/L (136-145)
[2024-10-23] VITALS (10 sets, daily range): BP systolic 110–162; BP diastolic 61–85; TEMP 97–98.1; O2SAT 90–97
[2024-10-23] MEDS: amLODIPine 5 MG TAB PO ONE (00:35)
[2024-10-23 00:42] LABS: INR 0.87; PARTIAL THROMBOPLASTIN TIME 31.7 SECONDS (24.8-34.2); PROTHROMBIN TIME 12.2 SECONDS (12.5-14.5)
[2024-10-23 01:00] LABS: BASO # 0.1 10^3/uL (0.0-0.2); BASO % 0.3 % (0.0-1.0); EOS # 0.1 10^3/uL (0.0-0.5); EOS % 0.3 % (0.0-3.0); HEMATOCRIT 45.4 % (36.0-47.0); HEMOGLOBIN 14.9 g/dl (12.0-15.5); LYMPH # 1.4 10^3/uL (1.5-5.0); LYMPH % 9.2 % (24.0-44.0); MEAN CORPUSCULAR HEMOGLOBIN 31.6 pg (27.0-33.0); MEAN CORPUSCULAR HGB CONC 32.8 g/dl (32.0-36.5); MEAN CORPUSCULAR VOLUME 96.2 fl (80.0-96.0); MONO % 6.4 % (2.0-8.0); NEUTROPHILS # 12.9 10^3/uL (1.5-8.5); NEUTROPHILS % 83.3 % (36.0-66.0); PLATELET COUNT, AUTOMATED 185 10^3/uL (150-450); RED BLOOD COUNT 4.72 10^6/uL (4.00-5.40); WHITE BLOOD COUNT 15.5 10^3/uL (4.0-10.0)
[2024-10-23] MEDS: NS (Normal Saline) 0.9% 1,000 ML IV SCH (02:34)
[2024-10-23] MEDS: MEMANTINE 5MG TABLET (NAMENDA) PO SCH (09:00)
[2024-10-23] MEDS: DOCUSATE SODIUM 100MG CAPSULE PO SCH (09:00)
[2024-10-23] MEDS ORDERED: ROCURONIUM BROMIDE 50MG/5ML VIAL As Ordered ONE (13:17)
[2024-10-23] MEDS ORDERED: propofoL 200 MG/20 ML VIAL As Ordered ONE (13:17)
[2024-10-23] MEDS ORDERED: GLYCOPYRROLATE INJ 0.2 MG/ML 2 ML VIAL As Ordered ONE (13:18)
[2024-10-23] MEDS ORDERED: ONDANSETRON 4MG 2ML VIAL As Ordered ONE (13:18)
[2024-10-23] MEDS ORDERED: LIDOCAINE 2% 100MG/5ML SDV (FOR ANES.) As Ordered ONE (13:18)
[2024-10-23] MEDS ORDERED: SUGAMMADEX SODIUM 500 MG/5 ML VIAL (BRIDION) As Ordered ONE (13:18)
[2024-10-23] MEDS ORDERED: MORPHINE PRES-FREE INJ 10 MG/10 ML VIAL As Ordered ONE (13:45)
[2024-10-23] MEDS ORDERED: KETAMINE HCL 200MG/20ML VIAL As Ordered ONE (13:57)
[2024-10-23] MEDS: EPINEPHrine INJ 1 MG/ML 1ML AMP As Ordered ONE (14:15)
[2024-10-23] MEDS ORDERED: ePHEDrine SULFATE 25 MG/5 ML(5MG/ML) SYRINGE As Ordered ONE (14:33)
[2024-10-23] MEDS: ceFAZolin SODIUM 2 GM VIAL As Ordered ONE (14:34)
[2024-10-23] MEDS ORDERED: PHENYLephrine 500MCG 5ML (100MCG/ML) SYRINGE As Ordered ONE (14:48)
[2024-10-23] MEDS ORDERED: MORPHINE 2 MG/ML 1ML VIAL IV PRN (18:00)
[2024-10-23] MEDS: ACETAMINOPHEN 325 MG TAB PO SCH (18:00)
[2024-10-23] MEDS: PRAVASTATIN 20 MG TAB PO SCH (20:57)
[2024-10-23] MEDS: ceFAZolin SODIUM 2 GM in DEXTROSE 5% (D5W) ADV/MINI-BAG 50 ML IV SCH (20:57)
[2024-10-23] MEDS: DONEPEZIL 5 MG TAB PO SCH (20:57)
[2024-10-24 00:09] VITALS: BP 114/55; TEMP 97.9; O2SAT 89
[2024-10-24 04:51] VITALS: BP 124/71; TEMP 96.8; O2SAT 91
[2024-10-24 06:28] LABS: BLOOD UREA NITROGEN 10 MG/DL (9-23); CALCIUM LEVEL 7.9 MG/DL (8.3-10.6); CARBON DIOXIDE LEVEL 28 MMOL/L (20-31); CHLORIDE LEVEL 105 MMOL/L (98-107); CREATININE FOR GFR 0.58 MG/DL (0.55-1.30); GLOMERULAR FILTRATION RATE > 60.0 (>32); GLUCOSE, FASTING 119 MG/DL (74-106); POTASSIUM SERUM 4.2 MMOL/L (3.5-5.1); SODIUM LEVEL 141 MMOL/L (136-145)
[2024-10-24 07:21] LABS: BASO % 0.1 % (0.0-1.0); HEMATOCRIT 33.8 % (36.0-47.0); HEMOGLOBIN 10.9 g/dl (12.0-15.5); MEAN CORPUSCULAR HEMOGLOBIN 31.5 pg (27.0-33.0); MEAN CORPUSCULAR HGB CONC 32.2 g/dl (32.0-36.5); MEAN CORPUSCULAR VOLUME 97.7 fl (80.0-96.0); MONO % 5.1 % (2.0-8.0); NEUTROPHILS % 89.2 % (36.0-66.0); PLATELET COUNT, AUTOMATED 115 10^3/uL (150-450); RED BLOOD COUNT 3.46 10^6/uL (4.00-5.40)
[2024-10-24] MEDS ORDERED: ACETAMINOPHEN 325 MG TAB PO PRN (07:35)
[2024-10-24 08:00] VITALS: BP 125/70; TEMP 98.2; O2SAT 91
[2024-10-24] MEDS: ENOXAPARIN 30MG/0.3ML SYRINGE (J1650 PER 10MG) SC SCH (09:14)
[2024-10-24 10:26] LABS: C REACTIVE PROTEIN QUANTITATIV 10.91 MG/DL (<1.0)
[2024-10-24 12:00] VITALS: BP 104/48; TEMP 98.2; O2SAT 90
[2024-10-24 14:02] LABS: KETONE, URINE AUTO RFX NEGATIVE (NEGATIVE); LEUKOCYTE ESTERASE UR AUTO RFX NEGATIVE (NEGATIVE); NITRITE, URINE AUTO RFX NEGATIVE (NEGATIVE); RBC, URINE AUTO RFX 18 /HPF (0-3); SQUAM EPITHELIAL CELL UR AURFX 1 /HPF (0-6); WBC, URINE AUTO RFX 2 /HPF (0-3)
== END 2024-10-24 13:30 | DRG 482 ==
LOC: M ED 21:42 → M ED INP 23:45 → M MS5PR 10-23 02:40
PROVIDERS: ADMIT Internal Medicine; ATTEND Internal Medicine
PROC: 0QS736Z Reposition Left Upper Femur with Intramedullary Internal Fixation Device, Percutaneous Approach (ICD-10-PCS; principal; 2024-10-23 14:00)
DX: S72.142A Displaced intertrochanteric fracture of left femur, initial encounter for closed fracture (principal); F03.90 Unspecified dementia, unspecified severity, without behavioral disturbance, psychotic disturbance, mood disturbance, and anxiety; M81.0 Age-related osteoporosis without current pathological fracture; I10 Essential (primary) hypertension; E78.5 Hyperlipidemia, unspecified; E80.4 Gilbert syndrome; W18.09XA Striking against other object with subsequent fall, initial encounter; Z79.82 Long term (current) use of aspirin; Z79.899 Other long term (current) drug therapy; Y92.013 Bedroom of single-family (private) house as the place of occurrence of the external cause; Z66 Do not resuscitate

== ENCOUNTER 2024-10-24 13:27 | Inpatient (IN) | payer MEDICARE, OTHER ==
[~2024-10-24] VITALS: Ht 152.4 cm; Wt 57.5 kg
[~2024-10-24 13:27] MED LIST changes: +ASPI81TA26 PO; +CVS-161 PO; +PRAV20TA2 PO; +THERTAB52 PO
[2024-10-24] MEDS ORDERED: MOM 30ML SUSPENSION UDC PO PRN (13:45)
[2024-10-24] MEDS ORDERED: NORCO, ANEXSIA 5/325MG TABLET (HYDROcodone/ACETAMINOPHEN) PO PRN (13:45)
[2024-10-24] MEDS ORDERED: MAALOX 30 ML SUSP *UDC PO PRN (13:45)
[2024-10-24] MEDS ORDERED: BISACODYL 5MG TAB PO PRN (13:45)
[2024-10-24] MEDS ORDERED: BISACODYL 10MG SUPP PR PRN (13:45)
[2024-10-24] MEDS ORDERED: ONDANSETRON 4MG ORAL DISINTEGRATING TAB PO PRN (13:45)
[2024-10-24] MEDS ORDERED: ACETAMINOPHEN 500 MG TAB PO PRN (13:45)
[2024-10-24 14:00] VITALS: BP 116/59; TEMP 98.1; O2SAT 93
[2024-10-24] MEDS: ACETAMINOPHEN 325 MG TAB PO SCH (16:39)
[2024-10-24] MEDS: LACTOBACILLUS ACIDOPHILUS CAP (BACID) PO SCH (17:31)
[2024-10-24] MEDS: LevoFLOXacin 250 MG TABLET PO SCH (17:32)
[2024-10-24 20:00] VITALS: BP 144/63; TEMP 98; O2SAT 95
[2024-10-24] MEDS: MEMANTINE 5MG TABLET (NAMENDA) PO SCH (20:41)
[2024-10-24] MEDS: PRAVASTATIN 20 MG TAB PO SCH (20:41)
[2024-10-24] MEDS: NORCO, ANEXSIA 5/325MG TABLET (HYDROcodone/ACETAMINOPHEN) PO PRN (20:41)
[2024-10-24] MEDS: CALCIUM/VITAMIN D 500 MG TAB PO SCH (20:41)
[2024-10-24] MEDS: DOCUSATE SODIUM 100MG CAPSULE PO SCH (20:41)
[2024-10-24] MEDS: ASPIRIN 81MG ENTERIC TABLET PO SCH (20:41)
[2024-10-24] MEDS: DONEPEZIL 5 MG TAB PO SCH (20:42)
[2024-10-24] MEDS: SENNA 8.6 MG TAB (SENOKOT) PO SCH (20:42)
[2024-10-25 06:05] VITALS: BP 149/64; TEMP 97.6; O2SAT 95
[2024-10-25 06:21] LABS: BASO % 0.2 % (0.0-1.0); EOS # 0.1 10^3/uL (0.0-0.5); EOS % 1.2 % (0.0-3.0); HEMATOCRIT 33.3 % (36.0-47.0); HEMOGLOBIN 10.6 g/dl (12.0-15.5); LYMPH % 16.7 % (24.0-44.0); MEAN CORPUSCULAR HEMOGLOBIN 31.2 pg (27.0-33.0); MEAN CORPUSCULAR HGB CONC 31.8 g/dl (32.0-36.5); MEAN CORPUSCULAR VOLUME 97.9 fl (80.0-96.0); MONO % 8.2 % (2.0-8.0); NEUTROPHILS # 8.7 10^3/uL (1.5-8.5); PLATELET COUNT, AUTOMATED 130 10^3/uL (150-450); WHITE BLOOD COUNT 11.9 10^3/uL (4.0-10.0)
[2024-10-25 06:56] LABS: ALBUMIN 2.7 G/DL (3.2-5.2); ALKALINE PHOSPHATASE 67 U/L (35-104); ALT/SGPT < 9 U/L (7.0-40); AST/SGOT 21 U/L (<34); BILIRUBIN,TOTAL 1.7 MG/DL (0.3-1.2); BLOOD UREA NITROGEN 12 MG/DL (9-23); CALCIUM LEVEL 8.4 MG/DL (8.3-10.6); CARBON DIOXIDE LEVEL 31 MMOL/L (20-31); CHLORIDE LEVEL 106 MMOL/L (98-107); CREATININE FOR GFR 0.72 MG/DL (0.55-1.30); GLOMERULAR FILTRATION RATE > 60.0 (>32); GLUCOSE, FASTING 92 MG/DL (74-106); POTASSIUM SERUM 3.9 MMOL/L (3.5-5.1); SODIUM LEVEL 144 MMOL/L (136-145); TOTAL PROTEIN 5.7 G/DL (5.7-8.2)
[2024-10-25] MEDS: MIRALAX *UNIT DOSE* 17GM PACKET PO SCH (09:15)
[2024-10-25] MEDS: ENOXAPARIN 40MG/0.4ML SYRINGE (J1650 PER 10MG) SC SCH (09:17)
[2024-10-25 12:00] VITALS: BP 137/60; TEMP 98.1; O2SAT 94
[2024-10-25 20:00] VITALS: BP 138/60; TEMP 98.8; O2SAT 100
[2024-10-26 04:00] VITALS: BP 138/60; TEMP 98.8; O2SAT 100
[2024-10-26 06:21] LABS: BASO % 0.3 % (0.0-1.0); EOS # 0.1 10^3/uL (0.0-0.5); EOS % 1.3 % (0.0-3.0); HEMATOCRIT 27.6 % (36.0-47.0); HEMOGLOBIN 9.1 g/dl (12.0-15.5); LYMPH # 1.4 10^3/uL (1.5-5.0); LYMPH % 14.2 % (24.0-44.0); MEAN CORPUSCULAR HEMOGLOBIN 31.8 pg (27.0-33.0); MEAN CORPUSCULAR VOLUME 96.5 fl (80.0-96.0); MONO # 0.8 10^3/uL (0.0-0.8); MONO % 8.5 % (2.0-8.0); NEUTROPHILS # 7.2 10^3/uL (1.5-8.5); NEUTROPHILS % 75.2 % (36.0-66.0); PLATELET COUNT, AUTOMATED 125 10^3/uL (150-450); RED BLOOD COUNT 2.86 10^6/uL (4.00-5.40); WHITE BLOOD COUNT 9.5 10^3/uL (4.0-10.0)
[2024-10-26 12:00] VITALS: BP 142/63; TEMP 97; O2SAT 97
[2024-10-26 20:33] VITALS: BP 137/60; TEMP 97.9; O2SAT 97
[2024-10-27 04:05] VITALS: BP 144/63; TEMP 97.6; O2SAT 94
[2024-10-27 06:25] LABS: BASO % 0.4 % (0.0-1.0); EOS # 0.2 10^3/uL (0.0-0.5); EOS % 2.6 % (0.0-3.0); HEMATOCRIT 27.7 % (36.0-47.0); HEMOGLOBIN 8.9 g/dl (12.0-15.5); LYMPH # 1.7 10^3/uL (1.5-5.0); MEAN CORPUSCULAR HEMOGLOBIN 31.6 pg (27.0-33.0); MEAN CORPUSCULAR HGB CONC 32.1 g/dl (32.0-36.5); MEAN CORPUSCULAR VOLUME 98.2 fl (80.0-96.0); MONO # 0.8 10^3/uL (0.0-0.8); MONO % 10.2 % (2.0-8.0); NEUTROPHILS # 5.3 10^3/uL (1.5-8.5); NEUTROPHILS % 64.9 % (36.0-66.0); PLATELET COUNT, AUTOMATED 158 10^3/uL (150-450); RED BLOOD COUNT 2.82 10^6/uL (4.00-5.40); WHITE BLOOD COUNT 8.1 10^3/uL (4.0-10.0)
[2024-10-27 12:00] VITALS: BP 135/62; TEMP 97.8; O2SAT 95
[2024-10-27 20:37] VITALS: BP 135/66; TEMP 97.7; O2SAT 95
[2024-10-28 04:42] VITALS: BP 140/63; TEMP 97.2; O2SAT 96
[2024-10-28 12:00] VITALS: BP 138/62; TEMP 97; O2SAT 96
[2024-10-28 20:04] VITALS: BP 148/62; TEMP 97.9; O2SAT 97
[2024-10-29 04:00] VITALS: BP 141/63; TEMP 97.5; O2SAT 95
[2024-10-29 06:04] LABS: BASO % 0.5 % (0.0-1.0); EOS # 0.2 10^3/uL (0.0-0.5); EOS % 2.4 % (0.0-3.0); HEMATOCRIT 29.3 % (36.0-47.0); HEMOGLOBIN 9.3 g/dl (12.0-15.5); LYMPH # 1.5 10^3/uL (1.5-5.0); LYMPH % 16.9 % (24.0-44.0); MEAN CORPUSCULAR HEMOGLOBIN 31.2 pg (27.0-33.0); MEAN CORPUSCULAR HGB CONC 31.7 g/dl (32.0-36.5); MEAN CORPUSCULAR VOLUME 98.3 fl (80.0-96.0); MONO # 0.9 10^3/uL (0.0-0.8); MONO % 10.4 % (2.0-8.0); NEUTROPHILS % 68.8 % (36.0-66.0); PLATELET COUNT, AUTOMATED 213 10^3/uL (150-450); RED BLOOD COUNT 2.98 10^6/uL (4.00-5.40); WHITE BLOOD COUNT 8.7 10^3/uL (4.0-10.0)
[2024-10-29 12:00] VITALS: BP 127/58; TEMP 97.6; O2SAT 97
[2024-10-29 20:11] VITALS: BP 126/56; TEMP 97.8; O2SAT 96
[2024-10-30 04:19] VITALS: BP 141/62; TEMP 96.9; O2SAT 94
[2024-10-30 12:00] VITALS: BP 137/62; TEMP 97.7; O2SAT 96
[2024-10-30 20:00] VITALS: BP 127/60; TEMP 97.5; O2SAT 98
[2024-10-31 04:41] VITALS: BP 122/61; TEMP 97.9; O2SAT 94
[2024-10-31 12:11] VITALS: BP 135/72; TEMP 98.2; O2SAT 98
[2024-10-31] MEDS ORDERED: ACET32TAB PO (13:54)
[2024-10-31] MEDS ORDERED: HYDR-3715 PO (13:54)
[2024-10-31 20:00] VITALS: BP 136/63; TEMP 97.7; O2SAT 98
[2024-11-01 04:00] VITALS: BP 116/53; TEMP 97.8; O2SAT 94
[2024-11-01 12:00] VITALS: BP 120/70; TEMP 98; O2SAT 98
[2024-11-01 20:00] VITALS: BP 147/68; TEMP 98.8; O2SAT 97
[2024-11-02 04:00] VITALS: BP 125/53; TEMP 98.3; O2SAT 93
[2024-11-02 12:00] VITALS: BP 137/74; TEMP 97.6; O2SAT 96
[2024-11-02 20:00] VITALS: BP 138/64; TEMP 98.7; O2SAT 95
[2024-11-03 04:00] VITALS: BP 127/58; TEMP 98.9; O2SAT 94
== END 2024-11-03 11:55 | disposition home health service (06) | DRG 560 ==
LOC: M PM&R 13:40
PROVIDERS: ADMIT Physical Medicine & Rehabilitation; ATTEND Physical Medicine & Rehabilitation
DX: S72.142D Displaced intertrochanteric fracture of left femur, subsequent encounter for closed fracture with routine healing (principal); N39.0 Urinary tract infection, site not specified; F02.C0 Dementia in other diseases classified elsewhere, severe, without behavioral disturbance, psychotic disturbance, mood disturbance, and anxiety; M81.0 Age-related osteoporosis without current pathological fracture; E78.5 Hyperlipidemia, unspecified; K64.9 Unspecified hemorrhoids; I10 Essential (primary) hypertension; D64.9 Anemia, unspecified; K59.00 Constipation, unspecified; E80.4 Gilbert syndrome; R05.9 Cough, unspecified; Z66 Do not resuscitate; Z74.09 Other reduced mobility; Z74.1 Need for assistance with personal care; Z87.891 Personal history of nicotine dependence; Z85.43 Personal history of malignant neoplasm of ovary; Z79.82 Long term (current) use of aspirin; Z79.899 Other long term (current) drug therapy

== ENCOUNTER → 2024-11-12 | Outpatient (CLI) | payer MEDICARE, OTHER ==
[~2024-11-12] MED LIST changes: +ACET32TAB PO; +HYDR-3715 PO
== END ==
LOC: M SOG 07:56
PROVIDERS: ATTEND Physician Assistant
DX: S72.142A Displaced intertrochanteric fracture of left femur, initial encounter for closed fracture (principal); W18.30XA Fall on same level, unspecified, initial encounter; Y92.009 Unspecified place in unspecified non-institutional (private) residence as the place of occurrence of the external cause

== ENCOUNTER → 2025-05-04 | Outpatient (REF) | payer MEDICARE, OTHER ==
[~2025-05-04] MED LIST changes: -PRAV20TA2 PO; +PRAV20TA78 PO
[2025-05-04 13:59] LABS: APPEARANCE, URINE CLEAR (CLEAR); BACTERIA, URINE AUTO NEGATIVE (NEGATIVE); BILIRUBIN, URINE AUTO NEGATIVE (NEGATIVE); BLOOD, URINE BLOOD NEGATIVE (NEGATIVE); CALCIUM OXALATE CRYSTALS SMALL; GLUCOSE, URINE (UA) AUTO NEGATIVE (NEGATIVE); KETONE, URINE AUTO NEGATIVE (NEGATIVE); LEUKOCYTE ESTERASE, URINE AUTO NEGATIVE (NEGATIVE); MUCUS, URINE SMALL (NEGATIVE); NITRITE, URINE AUTO NEGATIVE (NEGATIVE); PROTEIN, URINE AUTO NEGATIVE (NEGATIVE); RBC, URINE AUTO 2 /HPF (0-3); SPECIFIC GRAVITY URINE AUTO 1.024 (1.002-1.035); SQUAMOUS EPITHELIAL CELL UR AU 0 /HPF (0-6); UROBILINOGEN, URINE AUTO 0.2 mg/dL (0.0-2.0); WBC, URINE AUTO 2 /HPF (0-3)
== END ==
LOC: M SFHCADAM 10:21
PROVIDERS: ATTEND Family Medicine
DX: R35.0 Frequency of micturition (principal)